=== PATIENT | male | born 1940 | race Caucasian/White ===

== ENCOUNTER 2018-01-22 11:06 | Inpatient (IN) ==
[2018-01-22] MEDS ORDERED: Morphine Inj 4 MG/ML Vial IV.PUSH ONE ×2 (11:29→12:17)
[2018-01-22] MEDS ORDERED: Sod Chloride 0.9% Inj 1,000 ML IV.SIG ONE (11:29)
--- NOTE | 2018-01-22 11:40 | ED ---
HPI General Chief Complaint: Back Pain/Injury Stated Complaint: back pain Time Seen by Provider: 01/22/18 11:20 Source: patient and family Mode of arrival: ambulatory Limitations: no limitations History of Present Illness HPI Narrative: Patient is a 77-year-old male who presents to the emergency room for evaluation of right-sided flank pain. Patient reports that he has been having pain to his right flank since 9am this morning, reports that now pain is more to his right groin. Denies hematuria, denies urinary urgency, he does have urinary frequency which he attributes to old age. Denies history of kidney stones in the past. Denies fever/chills, denies n/v/d. Patient's son who is at bedside did mention that patient had been complaining of back pain for the past week to his mother. Patient did try taking 1 acetaminophen which provided mild relief of symptoms. Related Data Home Medications Medication Instructions Recorded Confirmed No Known Home Medications 01/22/18 01/22/18 Allergies Allergy/AdvReac Type Severity Reaction Status Date / Time No Known Allergies Allergy Uncoded 01/10/16 13:59 Review of Systems Except as stated in HPI: all other systems reviewed are negative [facility] Social History Social History Substance History: No History of Abuse Second Hand Smoke Exposure: No Smoking Status: Never smoker How Often Do You Have a Drink Containing Alcohol: Never Recent Travel in [facility] within the Last 8 Weeks: No Recent Out of Country Travel within the Last 8 Weeks: No Immunization History Tetanus Immunization: Unsure Hx Influenza Vaccine This Season: Yes Exam Narrative Exam Narrative: GENERAL: mild distress SKIN: Focused skin assessment warm/dry. HEAD: Atraumatic. Normocephalic. EYES: Pupils equal and round. No scleral icterus. No injection or drainage. ENT: No nasal bleeding or discharge. Mucous membranes pink and moist. NECK: Trachea midline. No JVD. CARDIOVASCULAR: Regular rate and rhythm. No murmur appreciated. RESPIRATORY: No accessory muscle use. Clear to auscultation. Breath sounds equal bilaterally. GASTROINTESTINAL: Abdomen soft, non-tender, nondistended. Hepatic and splenic margins not palpable. Patient with right sided flank pain on exam MUSCULOSKELETAL: No obvious deformities. No clubbing. No cyanosis. No edema. NEUROLOGICAL: Awake and alert. No obvious cranial nerve deficits. Motor grossly within normal limits. Normal speech. PSYCHIATRIC: Appropriate mood and affect; insight and judgment normal. Course Initial Documented Vital Signs Temperature 97.2 F L 01/22/18 11:15 Pulse Rate 81 01/22/18 11:15 Respiratory Rate 16 01/22/18 11:15 Blood Pressure 150/67 H 01/22/18 11:15 Pulse Oximetry 99 01/22/18 11:15 Last Documented Vital Signs Temperature 97.2 F L 01/22/18 11:15 Pulse Rate 73 01/22/18 13:20 Respiratory Rate 18 01/22/18 13:20 Blood Pressure 159/72 H 01/22/18 13:20 Pulse Oximetry 100 01/22/18 13:20 Medical Decision Making MDM Narrative Medical decision making narrative: During the course of the patients emergency department visit, the patients history, examination, and differential diagnosis were reviewed with the patient. The patient was placed on a quality assurance monitor chassis with oximetry and frequent blood pressure monitoring. The patient had an IV access obtained and blood work sent for analysis. The patient was initially provided IVF as well as IV morphine for pain relief The patients laboratory studies were reviewed and remarkable for WBC at 50.9, bandemia 18 -patient reports that he is currently being worked up for a leukocytosis with pipeline technician Dr. Sanders, he had a bm biopsy which wasnt normal Radiology studies were reviewed and remarkable for 16 mm x 9.5 mm calculus at the right UPJ with mild right hydronephrosis and obstructive uropathy. Additional nonobstructing calculi in both kidneys as above. I am concerned with patient's white blood cell count as well as bandemia and renal dysfunction, patient will require admission to the hospital as he may need a PERC drain placed. He has been pancultured and was given a dose of rocephin. Case reviewed with patient who is agreeable to admission to the hospital. Case reviewed with FP resident who accepts pt to service Differential Diagnosis Differential Diagnosis: Pyelonephritis, UTI, kidney stone, muscloskeletal pain Medical Records Medical records reviewed: Yes I reviewed the patient's medical records. Lab Data Lab results reviewed: Yes I reviewed the patient's lab results. Result diagrams: 01/22/18 11:39 01/22/18 11:39 Lab Results 01/22/18 01/22/18 01/22/18 Range/Units 11:39 11:39 11:39 WBC 50.9 H (4.0-11.0) th/mm3 RBC 4.31 L (4.50-5.90) mil/mm3 Hgb 11.2 L (13.0-17.0) gm/dL Hct 34.4 L (39.0-51.0) % MCV 79.9 L (80.0-100.0) fL MCH 26.1 L (27.0-34.0) pg MCHC 32.6 (32.0-36.0) % RDW 27.6 H (11.6-17.2) % Plt Count 370 (150-450) th/mm3 MPV 8.4 (7.0-11.0) fL Prelim Diff (Auto) Manual diff required WBC Differential Manual diff final Seg Neuts % (Manual) 59 (16-70) % Band Neuts % (Manual) 18 H (0-6) % Lymphocytes % (Manual) 14 (9-44) % Monocytes % (Manual) 3 (0-8) % Eosinophils % (Manual) 2 (0-4) % Basophils % (Manual) 1 (0-2) % Metamyelocytes % (Man) 2 H (0-1) % Myelocytes % (Man) 2 H (0-0) % Blast Cells % (Manual) 1 H (0-0) % Abs Neuts (Manual) 41.2 H (1.8-7.7) th/mm3 Differential Comment . Platelet Estimate Normal (Normal) Platelet Morphology Normal (Normal) Ovalocytes 1+ H (None) Keratocytes Occ H (None) Sodium 142 (136-145) meq/L Potassium 4.1 (3.5-5.1) meq/L Chloride 108 H (98-107) meq/L Carbon Dioxide 25.1 (21.0-32.0) meq/L Anion Gap 9 (5-15) meq/L BUN 26 H (7-18) mg/dL Creatinine 1.66 H (0.60-1.30) mg/dL Estimated GFR 40 L (>89) mL/min Random Glucose 120 H (74-106) mg/dL Calcium 8.9 (8.5-10.1) mg/dL Total Bilirubin 0.7 (0.2-1.0) mg/dL AST 17 (15-37) U/L ALT 22 (12-78) U/L Alkaline Phosphatase 137 H (45-117) U/L Total Protein 7.1 (6.4-8.2) g/dL Albumin 4.1 (3.4-5.0) g/dL Lipase 180 (73-393) U/L Urine Color Yellow (Yellw/Straw) Urine Clarity Clear (Clear) Urine pH 5.0 (5.0-8.5) Ur Specific [place] 1.018 (1.002-1.035) Urine Protein Negative (Neg-Trace) mg/dL Urine Glucose (UA) Negative (Negative) mg/dL Urine Ketones Negative (Negative) mg/dL Urine Occult Blood Moderate H (Negative) Urine Nitrate Negative (Negative) Urine Bilirubin Negative (Negative) Urine Urobilinogen Less than 2 (Less than 2) mg/dL Ur Leukocyte Esterase Negative (Negative) Urine RBC 78 H (0-3) /hpf Urine WBC 3 (0-5) /hpf Uric Acid Crystals Rare H (None) /hpf Urine Bacteria Rare H (None) /hpf Urine Mucus Few H (Occasional) /lpf Micro UA Comment Culture not ind Urine Culture Comments Culture not ind Imaging Data Attestation: I personally reviewed and interpreted this imaging study as follows : Radiologist's impression: Abdomen/Pelvis CT 01/22/18 11:30 CONCLUSION: 1. 16 mm x 9.5 mm calculus at the right UPJ with mild right hydronephrosis and obstructive uropathy. Additional nonobstructing calculi in both kidneys as above. 2. Splenomegaly to 17.4 cm in length. 3. Small pericardial effusion with pectus deformity. 4. Moderate coronary calcifications. Discharge Plan Discharge Disposition Patient Disposition: 30 Still Patient Discharge Condition Condition: Serious Discharge Details Diagnosis: Bandemia, Kidney stones, Acute renal insufficiency Physicians Team ED Provider: Lana Phillips Primary Care Provider: Chicho Wiggins Rxs /Orders / Referrals /Forms Prescriptions: No Action No Known Home Medications RF: 0 Status ED Status: With Doctor
[2018-01-22 11:58] LABS: Hematocrit 34.4 % (39.0-51.0); Hemoglobin 11.2 gm/dL (13.0-17.0); Mean Corpuscular HGB Conc 32.6 % (32.0-36.0); Mean Corpuscular Hemoglobin 26.1 pg (27.0-34.0); Mean Corpuscular Volume 79.9 fL (80.0-100.0); Mean Platelet Volume 8.4 fL (7.0-11.0); Platelet Count 370 th/mm3 (150-450); Red Blood Count 4.31 mil/mm3 (4.50-5.90); Red Cell Distribution Width 27.6 % (11.6-17.2); White Blood Count 50.9 th/mm3 (4.0-11.0)
[2018-01-22] MEDS ORDERED: Lidocaine PF 1% Inj 5 ML Syringe INFILTRATN ONE (12:00)
[2018-01-22 12:09] LABS: Albumin 4.1 g/dL (3.4-5.0); Anion Gap 9 meq/L (5-15); Aspartate Aminotransferase 17 U/L (15-37); Blood Urea Nitrogen 26 mg/dL (7-18); Calcium 8.9 mg/dL (8.5-10.1); Carbon Dioxide 25.1 meq/L (21.0-32.0); Chloride 108 meq/L (98-107); Glomerular Filtration Rate 40 mL/min (>89); Glucose,Random 120 mg/dL (74-106); Lipase 180 U/L (73-393); Potassium 4.1 meq/L (3.5-5.1); Sodium 142 meq/L (136-145)
[2018-01-22 12:10] LABS: Alanine Aminotransferase 22 U/L (12-78)
[2018-01-22 12:13] LABS: Alkaline Phosphatase 137 U/L (45-117); Total Protein 7.1 g/dL (6.4-8.2)
[2018-01-22 12:16] LABS: Bacteria,Urine Rare /hpf; Bilirubin,Urine Negative (Negative); Clarity,Urine Clear (Clear); Color,Urine Yellow (Yellw/Straw); Glucose,Urine (UA) Negative (Negative); Leukocyte Esterase,Urine Negative (Negative); Mucus,Urine Few /lpf (Occasional); Nitrite,Urine Negative (Negative); Specific Gravity,Urine 1.018 (1.002-1.035); Uric Acid Crystals,Urine Rare /hpf
[2018-01-22 12:24] LABS: Eosinophils 2 % (0-4); Monocytes 3 % (0-8); Ovalocytes 1+
[2018-01-22 12:29] LABS: Blast Cells 1 % (0-0); Lymphocytes 14 % (9-44); Metamyelocytes 2 % (0-1); Myelocytes 2 % (0-0)
[2018-01-22 12:33] LABS: Platelet Estimate Normal (Normal); Platelet Morphology Normal (Normal)
--- NOTE | 2018-01-22 13:04 | CT ---
EXAM DATE: 01/22/2018 12:54 PM EDT AGE/SEX: 77 years / Male INDICATIONS: Right Side Flank Pain CLINICAL DATA: This is the patient's initial encounter. Patient reports that signs and symptoms have been present for 1 day and indicates a pain score of 7/10. MEDICAL/SURGICAL HISTORY: None. None. RADIATION DOSE: 6.64 CTDI (mGy) COMPARISON: No prior exams available for comparison. TECHNIQUE: Multiple contiguous axial images were obtained through the abdomen. Images were obtained using multiple row detector helical technique. Using automated exposure control and adjustment of the mA and/or kV according to patient size, radiation dose was kept as low as reasonably achievable to o btain optimal diagnostic quality images. DICOM format image data is available electronically for rev iew and comparison. FINDINGS: Pectus excavatum deformity is present. Linear scarring at the lung bases. Small pericardial effusion. No pleural effusion. Spleen is enlarged to 17.4 cm in length. Liver normal in size with a questionable nodular contour alexy t can be seen with cirrhosis. 16 mm x 9.5 mm calculus in the right renal pelvis near the UPJ associated with mild right-sided hydro nephrosis and likely obstructive uropathy given the right flank pain. There is an additional 6 mm non obstructing calculus in the lower pole right kidney and a 2 mm calculus in the lower pole left kidney . No pelvic masses or free fluid. No adenopathy. Mild constipation. Moderate coronary calcifications. CONCLUSION: 1. 16 mm x 9.5 mm calculus at the right UPJ with mild right hydronephrosis and obstructive uropathy. Additional nonobstructing calculi in both kidneys as above. 2. Splenomegaly to 17.4 cm in length. 3. Small pericardial effusion with pectus deformity. 4. Moderate coronary calcifications. Electronically signed by: Antwon Ford MD 01/22/2018 1:03 PM EDT
[2018-01-22] MEDS ORDERED: Ketorolac Inj 30 MG/ML (IVP) Vial IV.PUSH ONE (13:30)
--- NOTE | 2018-01-22 14:01 | P.HPFP ---
History of Present Illness Primary Care Physician: Chicho Wiggins MD <Dimitri Jeong 01/23/18 10:57> Chicho Wiggins MD <Stephon Mukherjee 01/22/18 14:01> History of Present Illness: Patient is a 77-year-old male with past history of leukocytosis with unknown etiology who presents today with back pain. States he had severe right lower back pain earlier this morning, after a few hours the pain radiated to his front/side. Otherwise he denies any significant abdominal pain. Denies nausea, vomiting, fever, chills, constipation, diarrhea, black or bloody stools, dysuria, change in urine color or smell, blood in urine, chest pain, palpitations, shortness of breath, left arm or jaw pain, lightheadedness, dizziness, headache, changes in vision. He denies any significant medical history other than a leukocytosis which is been going on for the past year, high of 17,000, has come down to 14,000 recently, being seen by Dr. Sanders. Reports a lack of energy for the past several weeks, however attributes it to the recent passing of his 18-year-old grandson. Denies anxiety, confusion, depression, sleep disturbances, lack of interest, change in appetite. No other acute complaints today. Medical Leukocytosis, etiology not identified Surg none Family Father: passed from CHF Mother: passed at 94 with Alzheimer Social EtOH: very rarely Smoking: none Drugs: none <Stephon Mukherjee 01/22/18 23:40> - Diagnosis (1) Hydronephrosis with obstructing calculus (2) Leukocytosis (3) Acute renal insufficiency (4) Nutrition, metabolism, and development symptoms <Dimitri Jeong 01/23/18 10:57> (1) Hydronephrosis with obstructing calculus (2) Bandemia (3) Acute renal insufficiency (4) Nutrition, metabolism, and development symptoms <Stephon Mukherjee 01/22/18 22:53> Inpatient Certification: I certify that the inpatient services were ordered in accordance with Medicare regulations governing the order. This includes certification that hospital inpatient services are reasonable and necessary and in the case of services not specified as inpatient-only under 42 CFR 419.22(n), that they are appropriately provided as inpatient services in accordance to with the 2-midnight benchmark under 43 CFR 412.3(e) <Dimitri Jeong - 01/23/18 10:57> Review of Systems Constitutional: Reports lack of energy, Denies body ache(s), Denies chills, Denies fever(s), Denies headache(s) <Stephon Mukherjee 01/22/18 23:40> Eyes: Denies blind spots, Denies blurry vision, Denies double vision, Denies loss of vision <Stephon Mukherjee 01/22/18 23:40> Ears, Nose, Mouth, and Throat: Reports ringing in the ears (chronic), Denies abnormal hearing, Denies dizziness, Denies dry mouth, Denies ear discharge, Denies headache(s) <Stephon Mukherjee 01/22/18 23:40> Cardiovascular: Denies chest pain, Denies excessive sweating, Denies fainting, Denies lightheadedness, Denies radiating jaw, neck or arm pain, Denies shortness of breath <Stephon Mukherjee 01/22/18 23:40> Respiratory: Denies cough, Denies coughing up blood, Denies shortness of breath , Denies wheezing <Stephon Mukherjee 01/22/18 23:40> Gastrointestinal: Denies abdominal pain, Denies black, tarry stools, Denies bright, red blood in stools, Denies change in bowel habits, Denies change in stools, Denies loose stools, Denies nausea, Denies vomiting <Stephon Mukherjee 01/22/18 23:40> Genitourinary: Denies blood in urine, Denies painful urination <Stephon Mukherjee 01/22/18 23:40> Musculoskeletal: Reports back pain, Denies joint pain, Denies joint swelling < Stephon Mukherjee 01/22/18 23:40> Skin/Breast: Denies dry skin, Denies rash, Denies skin ulcer, Denies sores < Stephon Mukherjee 01/22/18 23:40> Neurologic: Denies abnormal hearing, Denies abnormal movements, Denies abnormal speech, Denies confusion, Denies dizziness, Denies fainting, Denies headache(s) <Stephon Mukherjee 01/22/18 23:40> Psychiatric: Denies abnormal sleep pattern, Denies anxiety, Denies change in appetite, Denies confusion, Denies depression, Denies hopelessness, Denies thoughts of hurting/killing others, Denies thoughts of hurting/killing yourself <Stephon Mukherjee 01/22/18 23:40> Endocrine: Denies excessive sweating, Denies flushing <Stephon Mukherjee 11/04 23:40> Hematologic/Lymphatic: Denies easy bleeding, Denies easy bruising <Stephon Mukherjee 01/22/18 23:40> PMFSH - History History Provided By: Patient <Stephon Mukherjee 01/22/18 14:01> - Tobacco History Second Hand Smoke Exposure: No <Stephon Mukherjee 01/22/18 14:01> Tobacco Use In Past 30 Days: No <Stephon Mukherjee 01/22/18 14:01> Smoking Status: Never smoker <Stephon Mukherjee 01/22/18 14:01> - Alcohol History How Often Do You Have a Drink Containing Alcohol: Never <Stephon Mukherjee 14:01> - Substance Use History Substance History: No History of Abuse <Stephon Mukherjee 01/22/18 14:01> - Travel History Recent Travel in the [facility] Within the Last 8 Weeks: No <Stephon Mukherjee 01/22 14:01> Recent Travel Out of the Country Within the Last 8 Weeks: No <Stephon Mukherjee 01/22/18 14:01> - Immunization History Tetanus Immunization: Unsure <Stephon Mukherjee 01/22/18 14:01> Hx Influenza Vaccine This Season: Yes <Stephon Mukherjee 01/22/18 14:01> Medications and Allergies Allergies Allergy/AdvReac Type Severity Reaction Status Date / Time No Known Allergies Allergy Uncoded 01/10/16 13:59 <Dimitri Jeong 01/23/18 10:57> Home Medications Medication Instructions Recorded Confirmed Type No Known Home Medications 01/22/18 01/22/18 History <Dimitri Jeong 01/23/18 10:57> Active Medications: Active Medications Acetaminophen (Tylenol) 650 mg PO Q6HR PRN PRN Reason: PAIN SCALE 1 TO 2 Hydrocodone Bitart/Acetaminophen ([place] 5/325) 1 tab PO Q4H PRN PRN Reason: PAIN SCALE 3 TO 5 Last Admin: 01/23/18 03:45 Dose: 1 tab Ceftriaxone Sodium 1,000 mg/ (Sodium Chloride) 100 mls @ 200 mls/hr IV.SIG Q24H MOHAN Miscellaneous Information (Misc Nursing Information) 1 each OTHER UNSCH PRN PRN Reason: SEE LABEL COMMENTS Stop: 01/23/18 17:23 Morphine Sulfate (Morphine Inj) 4 mg IV.PUSH Q3H PRN PRN Reason: BREAKTHROUGH PAIN Naloxone HCl (Narcan Inj) 0.4 mg IV.PUSH UNSCH PRN PRN Reason: SEE LABEL COMMENTS Oxycodone/Acetaminophen (Percocet 5/325 Mg) 1 tab PO Q6H PRN PRN Reason: ABDOMINAL PAIN Stop: 01/25/18 23:59 Last Admin: 01/22/18 22:10 Dose: 1 tab Oxycodone/Acetaminophen (Percocet 10/325 Mg) 1 tab PO Q6H PRN PRN Reason: PAIN SCALE 6 TO 10 Last Admin: 01/23/18 01:06 Dose: 1 tab <Dimitri Jeong - 01/23/18 10:57> Exam Vital signs: Vital Signs 01/22/18 11:15 01/22/18 11:19 01/22/18 11:49 Temperature 97.2 F L Pulse Rate 81 83 Respiratory Rate 16 18 Blood Pressure 150/67 H 146/67 H Pulse Oximetry 99 99 98 01/22/18 11:59 01/22/18 13:20 01/22/18 17:21 Temperature 98.3 F Pulse Rate 73 80 Respiratory Rate 18 18 Blood Pressure 159/72 H 118/58 L Pulse Oximetry 98 100 96 01/22/18 17:30 01/22/18 17:45 01/22/18 17:54 Temperature 98.5 F Pulse Rate 71 80 Respiratory Rate 18 17 Blood Pressure 115/57 L 120/58 L Pulse Oximetry 96 97 97 01/22/18 18:00 01/22/18 19:00 01/22/18 19:58 Temperature 98.8 F 98.1 F Pulse Rate 64 62 65 Respiratory Rate 20 18 Blood Pressure 126/65 132/62 Pulse Oximetry 97 98 01/22/18 20:00 01/22/18 21:00 01/22/18 22:00 Temperature Pulse Rate 66 72 66 Respiratory Rate Blood Pressure Pulse Oximetry 01/22/18 23:00 01/23/18 00:00 01/23/18 01:00 Temperature 98.5 F Pulse Rate 65 61 56 L Respiratory Rate 18 Blood Pressure 132/71 Pulse Oximetry 96 01/23/18 02:00 01/23/18 03:00 01/23/18 04:00 Temperature 97.7 F Pulse Rate 58 L 64 58 L Respiratory Rate 18 Blood Pressure 119/60 Pulse Oximetry 97 01/23/18 04:42 01/23/18 05:00 01/23/18 06:00 Temperature Pulse Rate 57 L 57 L Respiratory Rate 16 Blood Pressure Pulse Oximetry 01/23/18 07:00 01/23/18 08:00 Temperature 97.8 F Pulse Rate 55 L 55 L Respiratory Rate 17 Blood Pressure 120/66 Pulse Oximetry 97 Intake & Output 01/22/18 01/23/18 01/23/18 18:59 06:59 18:59 Intake Total 500 / 500 480 / 480 Output Total 400 / 400 Balance 500 / 500 80 / 80 Weight 65.771 kg 68 kg Intake: Oral 480 / 480 Anesthesia Amount 500 / 500 Output: Urine 400 / 400 <Dimitri Jeong - 01/23/18 10:57> Vital Signs 01/22/18 11:15 01/22/18 11:19 01/22/18 11:49 Temperature 97.2 F L Pulse Rate 81 83 Respiratory Rate 16 18 Blood Pressure 150/67 H 146/67 H Pulse Oximetry 99 99 98 01/22/18 11:59 01/22/18 13:20 Temperature Pulse Rate 73 Respiratory Rate 18 Blood Pressure 159/72 H Pulse Oximetry 98 100 Intake & Output 01/21/18 01/22/18 01/22/18 18:59 06:59 18:59 Weight 65.771 kg <Stephon Mukherjee - 01/22/18 14:01> Narrative: GENERAL: Laying in bed, no acute distress. (Patient was examined following pain medication administration) SKIN: Warm and dry. Pectus excavatum HEAD: Atraumatic. Normocephalic. EYES: Pupils equal and round. No scleral icterus. No injection or drainage. ENT: No nasal bleeding or discharge. Mucous membranes pink and moist. NECK: Trachea midline. No JVD. CARDIOVASCULAR: Regular rate and rhythm. RESPIRATORY: No accessory muscle use. Clear to auscultation. Breath sounds equal bilaterally. GASTROINTESTINAL: Abdomen soft, non-tender, nondistended. Hepatic and splenic margins not palpable. MUSCULOSKELETAL: Extremities without clubbing, cyanosis, or edema. No obvious deformities. Mild right-sided CVA tenderness NEUROLOGICAL: Awake and alert. No obvious cranial nerve deficits. Motor grossly within normal limits. Five out of 5 muscle strength in the arms and legs. Normal speech. PSYCHIATRIC: Appropriate mood and affect; insight and judgment normal. <Stephon Mukherjee - 01/22/18 23:40> Results - Labs Result diagrams: 01/23/18 06:47 01/23/18 06:47 <Dimitri Jeong - 01/23/18 10:57> Abnormal lab results 01/22/18 01/22/18 01/22/18 Range/Units 11:39 11:39 11:39 WBC 50.9 H (4.0-11.0) th/mm3 RBC 4.31 L (4.50-5.90) mil/mm3 Hgb 11.2 L (13.0-17.0) gm/dL Hct 34.4 L (39.0-51.0) % MCV 79.9 L (80.0-100.0) fL MCH 26.1 L (27.0-34.0) pg RDW 27.6 H (11.6-17.2) % Neut % (Auto) (16.0-70.0) % Lymph % (Auto) (9.0-44.0) % Neut # (Auto) (1.8-7.7) th/mm3 [place] # (Auto) (0.0-0.9) th/mm3 Baso # (Auto) (0.0-0.2) th/mm3 Band Neuts % (Manual) 18 H (0-6) % Lymphocytes % (Manual) (9-44) % Metamyelocytes % (Man) 2 H (0-1) % Myelocytes % (Man) 2 H (0-0) % Blast Cells % (Manual) 1 H (0-0) % Abs Neuts (Manual) 41.2 H (1.8-7.7) th/mm3 Nucleated RBCs/100 WBC (0-0) /100 WBC Ovalocytes 1+ H (None) Keratocytes Occ H (None) Chloride 108 H (98-107) meq/L BUN 26 H (7-18) mg/dL Creatinine 1.66 H (0.60-1.30) mg/dL Estimated GFR 40 L (>89) mL/min Random Glucose 120 H (74-106) mg/dL AST (15-37) U/L Alkaline Phosphatase 137 H (45-117) U/L Total Protein (6.4-8.2) g/dL Urine Occult Blood Moderate H (Negative) Urine RBC 78 H (0-3) /hpf Uric Acid Crystals Rare H (None) /hpf Urine Bacteria Rare H (None) /hpf Urine Mucus Few H (Occasional) /lpf 01/23/18 01/23/18 Range/Units 06:47 06:47 WBC 56.4 H (4.0-11.0) th/mm3 RBC 3.79 L (4.50-5.90) mil/mm3 Hgb 9.9 L (13.0-17.0) gm/dL Hct 30.2 L (39.0-51.0) % MCV 79.7 L (80.0-100.0) fL MCH 26.0 L (27.0-34.0) pg RDW 27.5 H (11.6-17.2) % Neut % (Auto) 94.6 H (16.0-70.0) % Lymph % (Auto) 2.2 L (9.0-44.0) % Neut # (Auto) 53.3 H (1.8-7.7) th/mm3 [place] # (Auto) 1.1 H (0.0-0.9) th/mm3 Baso # (Auto) 0.4 H (0.0-0.2) th/mm3 Band Neuts % (Manual) 16 H (0-6) % Lymphocytes % (Manual) 1 L (9-44) % Metamyelocytes % (Man) (0-1) % Myelocytes % (Man) 13 H (0-0) % Blast Cells % (Manual) (0-0) % Abs Neuts (Manual) 54.1 H (1.8-7.7) th/mm3 Nucleated RBCs/100 WBC 1 H (0-0) /100 WBC Ovalocytes 1+ H (None) Keratocytes (None) Chloride 109 H (98-107) meq/L BUN 30 H (7-18) mg/dL Creatinine 1.64 H (0.60-1.30) mg/dL Estimated GFR 41 L (>89) mL/min Random Glucose (74-106) mg/dL AST 10 L (15-37) U/L Alkaline Phosphatase (45-117) U/L Total Protein 6.1 L D (6.4-8.2) g/dL Urine Occult Blood (Negative) Urine RBC (0-3) /hpf Uric Acid Crystals (None) /hpf Urine Bacteria (None) /hpf Urine Mucus (Occasional) /lpf Short CBC 01/22/18 01/23/18 Range/Units 11:39 06:47 WBC 50.9 H 56.4 H (4.0-11.0) th/mm3 Hgb 11.2 L 9.9 L (13.0-17.0) gm/dL Hct 34.4 L 30.2 L (39.0-51.0) % Plt Count 370 358 (150-450) th/mm3 BMP 01/22/18 01/23/18 11:39 06:47 Sodium 142 142 Potassium 4.1 4.3 Chloride 108 H 109 H Carbon Dioxide 25.1 25.1 BUN 26 H 30 H Creatinine 1.66 H 1.64 H Calcium 8.9 8.5 Liver Function 01/22/18 01/23/18 Range/Units 11:39 06:47 Total Bilirubin 0.7 0.6 (0.2-1.0) mg/dL AST 17 10 L (15-37) U/L ALT 22 17 (12-78) U/L Alkaline Phosphatase 137 H 117 (45-117) U/L Albumin 4.1 3.4 D (3.4-5.0) g/dL Urine 01/22/18 Range/Units 11:39 Urine Color Yellow (Yellw/Straw) Urine Clarity Clear (Clear) Urine pH 5.0 (5.0-8.5) Ur Specific [place] 1.018 (1.002-1.035) Urine Protein Negative (Neg-Trace) mg/dL Urine Glucose (UA) Negative (Negative) mg/dL <Dimitri Jeong - 01/23/18 10:57> Abnormal lab results 01/22/18 01/22/18 01/22/18 Range/Units 11:39 11:39 11:39 WBC 50.9 H (4.0-11.0) th/mm3 RBC 4.31 L (4.50-5.90) mil/mm3 Hgb 11.2 L (13.0-17.0) gm/dL Hct 34.4 L (39.0-51.0) % MCV 79.9 L (80.0-100.0) fL MCH 26.1 L (27.0-34.0) pg RDW 27.6 H (11.6-17.2) % Band Neuts % (Manual) 18 H (0-6) % Metamyelocytes % (Man) 2 H (0-1) % Myelocytes % (Man) 2 H (0-0) % Blast Cells % (Manual) 1 H (0-0) % Abs Neuts (Manual) 41.2 H (1.8-7.7) th/mm3 Ovalocytes 1+ H (None) Keratocytes Occ H (None) Chloride 108 H (98-107) meq/L BUN 26 H (7-18) mg/dL Creatinine 1.66 H (0.60-1.30) mg/dL Estimated GFR 40 L (>89) mL/min Random Glucose 120 H (74-106) mg/dL Alkaline Phosphatase 137 H (45-117) U/L Urine Occult Blood Moderate H (Negative) Urine RBC 78 H (0-3) /hpf Uric Acid Crystals Rare H (None) /hpf Urine Bacteria Rare H (None) /hpf Urine Mucus Few H (Occasional) /lpf Short CBC 01/22/18 Range/Units 11:39 WBC 50.9 H (4.0-11.0) th/mm3 Hgb 11.2 L (13.0-17.0) gm/dL Hct 34.4 L (39.0-51.0) % Plt Count 370 (150-450) th/mm3 BMP 01/22/18 11:39 Sodium 142 Potassium 4.1 Chloride 108 H Carbon Dioxide 25.1 BUN 26 H Creatinine 1.66 H Calcium 8.9 Liver Function 01/22/18 Range/Units 11:39 Total Bilirubin 0.7 (0.2-1.0) mg/dL AST 17 (15-37) U/L ALT 22 (12-78) U/L Alkaline Phosphatase 137 H (45-117) U/L Albumin 4.1 (3.4-5.0) g/dL Urine 01/22/18 Range/Units 11:39 Urine Color Yellow (Yellw/Straw) Urine Clarity Clear (Clear) Urine pH 5.0 (5.0-8.5) Ur Specific [place] 1.018 (1.002-1.035) Urine Protein Negative (Neg-Trace) mg/dL Urine Glucose (UA) Negative (Negative) mg/dL <Stephon Mukherjee 01/22/18 14:01> - Imaging Impressions Abdomen/Pelvis CT 01/22/18 11:30 CONCLUSION: 1. 16 mm x 9.5 mm calculus at the right UPJ with mild right hydronephrosis and obstructive uropathy. Additional nonobstructing calculi in both kidneys as above. 2. Splenomegaly to 17.4 cm in length. 3. Small pericardial effusion with pectus deformity. 4. Moderate coronary calcifications. <Dimitri Jeong - 01/23/18 10:57> Impressions Abdomen/Pelvis CT 01/22/18 11:30 CONCLUSION: 1. 16 mm x 9.5 mm calculus at the right UPJ with mild right hydronephrosis and obstructive uropathy. Additional nonobstructing calculi in both kidneys as above. 2. Splenomegaly to 17.4 cm in length. 3. Small pericardial effusion with pectus deformity. 4. Moderate coronary calcifications. <Stephon Mukherjee 01/22/18 14:01> Caprini VTE Risk Assessment Caprini VTE Risk Assessment: Moderate/High Risk (score >= 2) <Stephon Mukherjee 01/22/18 23:40> Caprini Risk Assessment Model: Point Value = 1 Point Value = 2 Point Value = 3 Point Value = 5 Age 41-60 Minor surgery BMI > 25 kg/m2 Swollen legs Varicose veins or History of unexplained or recurrent spontaneous Oral contraceptives or hormone replacement Sepsis (< 1 month) Serious lung disease, including pneumonia (< 1 month) Abnormal pulmonary function Acute myocardial infarction Congestive heart failure (< 1 month) History of inflammatory bowel disease Medical patient at bed rest Age 61-74 Arthroscopic surgery Major open surgery (> 45 min) Laparoscopic surgery (> 45 min) Malignancy Confined to bed (> 72 hours) Immobilizing plaster cast Central venous access Age >= 75 History of VTE Family history of VTE Factor V Leiden Prothrombin [id number] Lupus anticoagulant Anticardiolipin antibodies Elevated serum homocysteine Heparin-induced thrombocytopenia Other congenital or acquired thrombophilia Stroke (< 1 month) Elective arthroplasty Hip, pelvis, or leg fracture Acute spinal cord injury (< 1 month) <Dimitri Jeong - 01/23/18 10:57> Point Value = 1 Point Value = 2 Point Value = 3 Point Value = 5 Age 41-60 Minor surgery BMI > 25 kg/m2 Swollen legs Varicose veins or History of unexplained or recurrent spontaneous Oral contraceptives or hormone replacement Sepsis (< 1 month) Serious lung disease, including pneumonia (< 1 month) Abnormal pulmonary function Acute myocardial infarction Congestive heart failure (< 1 month) History of inflammatory bowel disease Medical patient at bed rest Age 61-74 Arthroscopic surgery Major open surgery (> 45 min) Laparoscopic surgery (> 45 min) Malignancy Confined to bed (> 72 hours) Immobilizing plaster cast Central venous access Age >= 75 History of VTE Family history of VTE Factor V Leiden Prothrombin [id number] Lupus anticoagulant Anticardiolipin antibodies Elevated serum homocysteine Heparin-induced thrombocytopenia Other congenital or acquired thrombophilia Stroke (< 1 month) Elective arthroplasty Hip, pelvis, or leg fracture Acute spinal cord injury (< 1 month) <Stephon Mukherjee - 01/22/18 14:01> Prophylaxis Regimen: Total Risk Factor Score Risk Level Prophylaxis Regimen 0-1 Low Early ambulation 2 Moderate Order ONE of the following: *Sequential Compression Device (SCD) *Heparin 5000 units SQ BID 3-4 Higher Order ONE of the following medications: *Heparin 5000 units SQ TID *Enoxaparin/Lovenox 40 mg SQ daily (WT < 150 kg, CrCl > 30 mL/min) *Enoxaparin/Lovenox 30 mg SQ daily (WT < 150 kg, CrCl > 10-29 mL/min) *Enoxaparin/Lovenox 30 mg SQ BID (WT < 150 kg, CrCl > 30 mL/min) AND/OR *Sequential Compression Device (SCD) 5 or more Highest Order ONE of the following medications: *Heparin 5000 units SQ TID (Preferred with Epidurals) *Enoxaparin/Lovenox 40 mg SQ daily (WT < 150 kg, CrCl > 30 mL/min) *Enoxaparin/Lovenox 30 mg SQ daily (WT < 150 kg, CrCl > 10-29 mL/min) *Enoxaparin/Lovenox 30 mg SQ BID (WT < 150 kg, CrCl > 30 mL/min) AND *Sequential Compression Device (SCD) <Dimitri Jeong - 01/23/18 10:57> Total Risk Factor Score Risk Level Prophylaxis Regimen 0-1 Low Early ambulation 2 Moderate Order ONE of the following: *Sequential Compression Device (SCD) *Heparin 5000 units SQ BID 3-4 Higher Order ONE of the following medications: *Heparin 5000 units SQ TID *Enoxaparin/Lovenox 40 mg SQ daily (WT < 150 kg, CrCl > 30 mL/min) *Enoxaparin/Lovenox 30 mg SQ daily (WT < 150 kg, CrCl > 10-29 mL/min) *Enoxaparin/Lovenox 30 mg SQ BID (WT < 150 kg, CrCl > 30 mL/min) AND/OR *Sequential Compression Device (SCD) 5 or more Highest Order ONE of the following medications: *Heparin 5000 units SQ TID (Preferred with Epidurals) *Enoxaparin/Lovenox 40 mg SQ daily (WT < 150 kg, CrCl > 30 mL/min) *Enoxaparin/Lovenox 30 mg SQ daily (WT < 150 kg, CrCl > 10-29 mL/min) *Enoxaparin/Lovenox 30 mg SQ BID (WT < 150 kg, CrCl > 30 mL/min) AND *Sequential Compression Device (SCD) <Stephon Mukherjee - 01/22/18 14:01> Assessment and Plan - Assessment (1) Hydronephrosis with obstructing calculus Code(s): N13.2 - Hydronephrosis with renal and ureteral calculous obstruction Status: Acute (2) Leukocytosis Code(s): D72.829 - Elevated white blood cell count, unspecified Status: Acute (3) Acute renal insufficiency Code(s): N28.9 - Disorder of kidney and ureter, unspecified Status: Acute (4) Nutrition, metabolism, and development symptoms Code(s): R63.8 - Other symptoms and signs concerning food and fluid intake Status: Acute <Jean-PaulDimitri ortiz - 01/23/18 10:57> (1) Hydronephrosis with obstructing calculus Code(s): N13.2 - Hydronephrosis with renal and ureteral calculous obstruction Status: Acute Plan: Right sided hydronephrosis with obstructing calculus, 16 mm 9.5 mm at right UPJ. -Consult urology, appreciate recommendations -Rocephin 1 g daily (2) Bandemia Code(s): D72.825 - Bandemia Status: Acute Plan: Bandemia of 18 with significant leukocytosis of 50.9. History of leukocytosis with unknown etiology, high of [address] Sanders. -Monitor for improvement on CBC -Follow-up blood cultures -Antibiotics as above -Hematology consult (3) Acute renal insufficiency Code(s): N28.9 - Disorder of kidney and ureter, unspecified Status: Acute Plan: Creatinine 1.66 on admission, historically 1.3-1.36. Likely 2/2 right sided ureteral obstruction. -Will hold IV fluids until assess by Urology -Continue PO intake (4) Nutrition, metabolism, and development symptoms Code(s): R63.8 - Other symptoms and signs concerning food and fluid intake Status: Acute Plan: Fluids: P.o. for now Electrolytes: Monitor and replete as needed Nutrition: P.o. DVT prophylaxis: Hold for now, possibility of urologic intervention <Stephon Mukherjee - 01/22/18 22:53> - Attending Attestation The exam, history, and the medical decision-making described in the above note were completed with the assistance of the resident physician. I reviewed and agree with the findings presented. I attest that I had a [id number] encounter with the patient on the same day, and personally performed and documented my assessment and findings in the medical record. <Dimitri Jeong - 01/23/18 10:57> <Jean-PaulDimitri - Cody Filed: 01/23/18 10:57> (2) Leukocytosis Qualifiers: Leukocytosis type: bandemia Qualified Code(s): D72.825 - Bandemia <Jean-PaulDimitri - Cody Filed: 01/23/18 10:57> (2) Leukocytosis Qualifiers: Leukocytosis type: bandemia Qualified Code(s): D72.825 - Bandemia
--- NOTE | 2018-01-22 17:15 | P.OP ---
- Preoperative Diagnosis (1) Hydronephrosis concurrent with and due to calculi of kidney and ureter (2) Kidney stones - Postoperative Diagnosis (1) Kidney stones (2) Hydronephrosis concurrent with and due to calculi of kidney and ureter Date of procedure: 01/22/18 Procedure: Cystoscopy, right retrograde pyelogram, right double-J stent insertion Anesthesia: other (General LMA) Surgeon: Дмитрий Romero DO Estimated blood loss (mL): 0 Operation and Findings: 77-year-old male with a history of acute onset of right-sided flank pain. CT scan in the emergency room demonstrated a 1 cm right UPJ stone with mild hydronephrosis. Decision made to bring the patient to the operating room to undergo a cystoscopy right double-J stent insertion. Risk and benefits were discussed preoperatively the patient was willing to proceed. Patient was brought to the operating room and identified by myself as Aristeo Bhatt. He was placed in dorsal lithotomy position, prepped and draped in usual sterile fashion, and received preprocedure antibiotics and general LMA anesthesia was administered. 22 [place] cystoscope was inserted in the bladder moran cystoscopy did not reveal any abnormal. The right ureteral orifice was identified and a 5 [place] opening catheter was inserted into the right ureteral orifice. A retrograde pyelogram was performed demonstrating a filling defect at the area of the UPJ and renal pelvis. The stone was not able to be visualized under direct fluoroscopy. A 0.35 sensor wire was then passed through the open-ended catheter beyond the stone in the kidney. A 6 [place] right double-J stent was then placed with a good curl in the kidney and the bladder and the bladder was evacuated and he was awoken and extubated and transferred recovery room in stable condition. He will require right extrapleural shockwave lithotripsy in the future.
[2018-01-22] MEDS ORDERED: fentaNYL Citrate Inj 100 MCG/2 ML Ampul ONE (17:32)
--- NOTE | 2018-01-22 17:38 | MB ---
cc: Дмитрий Romero DO DATE: 01/22/2018 HISTORY OF PRESENT ILLNESS: Mr. Bhatt is a pleasant 77-year-old male who presented with right-sided flank pain. A CT scan in the emergency room demonstrated a 1 cm UPJ stone, with moderate hydronephrosis. He has been noting to have some nausea with some vomiting. Denies fever or chills. He was noted to have an elevated white count of 50.9, which is being monitored by his family care physician. He denies any prior history of stones. PAST MEDICAL HISTORY: He denies any medical problems. PAST SURGICAL HISTORY: He denies any prior surgery. SOCIAL HISTORY: He denies any smoking, drinking or using drugs. FAMILY HISTORY: He has no history of prostate cancer. REVIEW OF SYSTEMS: Notes right-sided flank pain, some nausea, denies gross hematuria, urgency. Notes some abdominal pain. Denies chest pain, shortness of breath, abdominal pain, headaches, gait disturbances, bleeding disorders, psychiatric problems, skin lesions. The remaining review of systems were reviewed and were negative. PHYSICAL EXAMINATION: VITAL SIGNS: Today, temperature, he is afebrile, heart rate 73, respiratory rate 18, 159/72 is his blood pressure. GENERAL: He is a well-developed, well-nourished 77-year-old male in no acute distress. HEENT: Normocephalic, atraumatic. Pupils equal, round, regular and reactive to light. Extraocular movements intact. NECK: Supple. HEART: Regular rate and rhythm. LUNGS: Clear. ABDOMEN: Soft. There is right-sided CVA tenderness. GENITOURINARY: Normal phallus. Testes are descended. EXTREMITIES: Show no cyanosis, clubbing or edema. NEUROLOGIC: Cranial nerves 2-12 are intact. LABORATORY DATA: White count is noted to be 50.9, hemoglobin 11.2, hematocrit 34.4, platelet count of 370. Sodium 142, potassium 4.1, chloride 108, CO2 25.1, BUN of 25, creatinine 1.56, glucose of 120. Urinalysis shows 78 red cells with 3 white cells. IMAGING: Again, CT scan shows a 1 cm UPJ stone, with moderate hydronephrosis. ASSESSMENT AND PLAN: This is a 77-year-old male with a 1 cm right ureteropelvic junction stone, with some mild hydronephrosis. We will plan for cystoscopy with right double-J stent insertion. He will need a workup for his elevated white count, as he does not appear to be septic at all and there is only 3 white cells in the urine. We will require right extracorporeal shock wave lithotripsy in the near future. Thank you for the consult and allowing me to participate in the care of this patient. DO ALCIDES Hatch , 05:19 PM , 05:27 PM
[2018-01-23] MEDS ORDERED: Acetaminophen 325 MG Tablet PO PRN (00:32)
[2018-01-23] MEDS ORDERED: Morphine Inj 4 MG/ML Vial IV.PUSH PRN (00:32)
[2018-01-23] MEDS ORDERED: Naloxone Inj 0.4 MG/ML Vial IV.PUSH PRN (00:32)
[2018-01-23] MEDS ORDERED: oxyCODONE/Acetaminophen 10/325 Tablet PO PRN (00:32)
[2018-01-23 08:11] LABS: Baso # (Auto) 0.4 th/mm3 (0.0-0.2); Baso % (Auto) 0.7 % (0.0-2.0); Eos # (Auto) 0.3 th/mm3 (0.0-0.4); Eos % (Auto) 0.6 % (0.0-4.0); Hematocrit 30.2 % (39.0-51.0); Hemoglobin 9.9 gm/dL (13.0-17.0); Lymph # (Auto) 1.2 th/mm3 (1.0-4.8); Lymph % (Auto) 2.2 % (9.0-44.0); Mean Corpuscular HGB Conc 32.6 % (32.0-36.0); Mean Corpuscular Volume 79.7 fL (80.0-100.0); Mean Platelet Volume 8.5 fL (7.0-11.0); Mono # (Auto) 1.1 th/mm3 (0.0-0.9); Mono % (Auto) 1.9 % (0.0-8.0); Neut # (Auto) 53.3 th/mm3 (1.8-7.7); Neut % (Auto) 94.6 % (16.0-70.0); Platelet Count 358 th/mm3 (150-450); Red Blood Count 3.79 mil/mm3 (4.50-5.90); Red Cell Distribution Width 27.5 % (11.6-17.2); White Blood Count 56.4 th/mm3 (4.0-11.0)
[2018-01-23 08:37] LABS: Alanine Aminotransferase 17 U/L (12-78); Albumin 3.4 g/dL (3.4-5.0); Alkaline Phosphatase 117 U/L (45-117); Anion Gap 8 meq/L (5-15); Aspartate Aminotransferase 10 U/L (15-37); Blood Urea Nitrogen 30 mg/dL (7-18); Calcium 8.5 mg/dL (8.5-10.1); Carbon Dioxide 25.1 meq/L (21.0-32.0); Chloride 109 meq/L (98-107); Glomerular Filtration Rate 41 mL/min (>89); Glucose,Random 79 mg/dL (74-106); Potassium 4.3 meq/L (3.5-5.1); Sodium 142 meq/L (136-145); Total Protein 6.1 g/dL (6.4-8.2)
[2018-01-23 08:56] LABS: Lymphocytes 1 % (9-44); Metamyelocytes 1 % (0-1); Monocytes 3 % (0-8); Myelocytes 13 % (0-0); Ovalocytes 1+; Platelet Estimate Normal (Normal); Platelet Morphology Normal (Normal); Tallied Nucleated RBC 1 (0-0)
--- NOTE | 2018-01-23 08:56 | P.PNURO ---
Subjective Patient symptoms today: Pt seen and examined. Feels well. Objective Vital Signs: Vital Signs 01/22/18 11:15 01/22/18 11:19 01/22/18 11:49 Temperature 97.2 F L Pulse Rate 81 83 Respiratory Rate 16 18 Blood Pressure 150/67 H 146/67 H Pulse Oximetry 99 99 98 01/22/18 11:59 01/22/18 13:20 01/22/18 17:21 Temperature 98.3 F Pulse Rate 73 80 Respiratory Rate 18 18 Blood Pressure 159/72 H 118/58 L Pulse Oximetry 98 100 96 01/22/18 17:30 01/22/18 17:45 01/22/18 17:54 Temperature 98.5 F Pulse Rate 71 80 Respiratory Rate 18 17 Blood Pressure 115/57 L 120/58 L Pulse Oximetry 96 97 97 01/22/18 18:00 01/22/18 19:00 01/22/18 19:58 Temperature 98.8 F 98.1 F Pulse Rate 64 62 65 Respiratory Rate 20 18 Blood Pressure 126/65 132/62 Pulse Oximetry 97 98 01/22/18 20:00 01/22/18 21:00 01/22/18 22:00 Temperature Pulse Rate 66 72 66 Respiratory Rate Blood Pressure Pulse Oximetry 01/22/18 23:00 01/23/18 00:00 01/23/18 01:00 Temperature 98.5 F Pulse Rate 65 61 56 L Respiratory Rate 18 Blood Pressure 132/71 Pulse Oximetry 96 01/23/18 02:00 01/23/18 03:00 01/23/18 04:00 Temperature 97.7 F Pulse Rate 58 L 64 58 L Respiratory Rate 18 Blood Pressure 119/60 Pulse Oximetry 97 01/23/18 04:42 01/23/18 05:00 01/23/18 06:00 Temperature Pulse Rate 57 L 57 L Respiratory Rate 16 Blood Pressure Pulse Oximetry 01/23/18 07:00 01/23/18 08:00 Temperature 97.8 F Pulse Rate 55 L 55 L Respiratory Rate 17 Blood Pressure 120/66 Pulse Oximetry 97 Intake & Output 01/22/18 01/23/18 01/23/18 18:59 06:59 18:59 Intake Total 500 / 500 480 / 480 Output Total 400 / 400 Balance 500 / 500 80 / 80 Weight 65.771 kg 68 kg Intake: Oral 480 / 480 Anesthesia Amount 500 / 500 Output: Urine 400 / 400 Result Diagrams: 01/23/18 06:47 01/23/18 06:47 Imaging: Impressions Abdomen/Pelvis CT 01/22/18 11:30 CONCLUSION: 1. 16 mm x 9.5 mm calculus at the right UPJ with mild right hydronephrosis and obstructive uropathy. Additional nonobstructing calculi in both kidneys as above. 2. Splenomegaly to 17.4 cm in length. 3. Small pericardial effusion with pectus deformity. 4. Moderate coronary calcifications. Medications and IVs: Active Medications Generic Name Dose Route Start Last Admin Trade Name Freq PRN Reason Stop Dose Admin Acetaminophen 650 mg 01/23/18 00:32 Tylenol PO Q6HR PRN PAIN SCALE 1 TO 2 Hydrocodone Bitart/Acetaminophen 1 tab 01/23/18 00:32 01/23/18 03:45 [place] 5/325 PO 1 tab Q4H PRN Administration PAIN SCALE 3 TO 5 Ceftriaxone Sodium 1,000 mg/ 100 mls @ 200 mls/hr 01/23/18 09:00 Sodium Chloride IV.SIG Q24H [facility] Miscellaneous Information 1 each 01/22/18 17:24 Misc Nursing Information OTHER 01/23/18 17:23 UNSCH PRN SEE LABEL COMMENTS Morphine Sulfate 4 mg 01/23/18 00:32 Morphine Inj IV.PUSH Q3H PRN BREAKTHROUGH PAIN Naloxone HCl 0.4 mg 01/23/18 00:32 Narcan Inj IV.PUSH UNSCH PRN SEE LABEL COMMENTS Oxycodone/Acetaminophen 1 tab 01/22/18 17:20 01/22/18 22:10 Percocet 5/325 Mg PO 01/25/18 23:59 1 tab Q6H PRN Administration ABDOMINAL PAIN Oxycodone/Acetaminophen 1 tab 01/23/18 00:32 01/23/18 01:06 Percocet 10/325 Mg PO 1 tab Q6H PRN Administration PAIN SCALE 6 TO 10 Objective Remarks: Abd:soft,nt,nd Urine: aimee in color Assessment and Plan - Plan Stable s/p right JJ stent insertion Will require right ESWL as outpt Avoid anticoagulate medication/NSAIDS
--- NOTE | 2018-01-23 10:56 | P.PNFP ---
Subjective Interval history: Patient seen with resident team during medical rounds this morning. He is sitting up in bed and eating breakfast in no obvious distress. He states that he continues to have some dysuria/burning with urination, otherwise his back/ flank pain has resolved. He denies any fevers or chills. He denies any nausea or vomiting. He denies any other systemic symptoms. Further questioning does elicit a history of progressive fatigue over the last several weeks, but denies any acute changes or flulike illness. In summary, this is a 77-year-old male presenting to the emergency department with back pain and found to have a large obstructing kidney stone. He was admitted for evaluation by urology and subsequently underwent a cystoscopy with placement of a double-J stent to relieve the obstruction with future lithotripsy planned. He also was noted to have a significant leukocytosis of greater than 50,000, he states that he has had a history of leukocytosis and is been seen by Dr. Sanders of hematology, undergoing blood work, bone marrow biopsy, and blood smear with no definitive findings -however records are not readily available to us. Results - Labs Result diagrams: 01/23/18 06:47 01/23/18 06:47 Abnormal lab results 01/22/18 01/22/18 01/22/18 Range/Units 11:39 11:39 11:39 WBC 50.9 H (4.0-11.0) th/mm3 RBC 4.31 L (4.50-5.90) mil/mm3 Hgb 11.2 L (13.0-17.0) gm/dL Hct 34.4 L (39.0-51.0) % MCV 79.9 L (80.0-100.0) fL MCH 26.1 L (27.0-34.0) pg RDW 27.6 H (11.6-17.2) % Neut % (Auto) (16.0-70.0) % Lymph % (Auto) (9.0-44.0) % Neut # (Auto) (1.8-7.7) th/mm3 [place] # (Auto) (0.0-0.9) th/mm3 Baso # (Auto) (0.0-0.2) th/mm3 Band Neuts % (Manual) 18 H (0-6) % Lymphocytes % (Manual) (9-44) % Metamyelocytes % (Man) 2 H (0-1) % Myelocytes % (Man) 2 H (0-0) % Blast Cells % (Manual) 1 H (0-0) % Abs Neuts (Manual) 41.2 H (1.8-7.7) th/mm3 Nucleated RBCs/100 WBC (0-0) /100 WBC Ovalocytes 1+ H (None) Keratocytes Occ H (None) Chloride 108 H (98-107) meq/L BUN 26 H (7-18) mg/dL Creatinine 1.66 H (0.60-1.30) mg/dL Estimated GFR 40 L (>89) mL/min Random Glucose 120 H (74-106) mg/dL AST (15-37) U/L Alkaline Phosphatase 137 H (45-117) U/L Total Protein (6.4-8.2) g/dL Urine Occult Blood Moderate H (Negative) Urine RBC 78 H (0-3) /hpf Uric Acid Crystals Rare H (None) /hpf Urine Bacteria Rare H (None) /hpf Urine Mucus Few H (Occasional) /lpf 01/23/18 01/23/18 Range/Units 06:47 06:47 WBC 56.4 H (4.0-11.0) th/mm3 RBC 3.79 L (4.50-5.90) mil/mm3 Hgb 9.9 L (13.0-17.0) gm/dL Hct 30.2 L (39.0-51.0) % MCV 79.7 L (80.0-100.0) fL MCH 26.0 L (27.0-34.0) pg RDW 27.5 H (11.6-17.2) % Neut % (Auto) 94.6 H (16.0-70.0) % Lymph % (Auto) 2.2 L (9.0-44.0) % Neut # (Auto) 53.3 H (1.8-7.7) th/mm3 [place] # (Auto) 1.1 H (0.0-0.9) th/mm3 Baso # (Auto) 0.4 H (0.0-0.2) th/mm3 Band Neuts % (Manual) 16 H (0-6) % Lymphocytes % (Manual) 1 L (9-44) % Metamyelocytes % (Man) (0-1) % Myelocytes % (Man) 13 H (0-0) % Blast Cells % (Manual) (0-0) % Abs Neuts (Manual) 54.1 H (1.8-7.7) th/mm3 Nucleated RBCs/100 WBC 1 H (0-0) /100 WBC Ovalocytes 1+ H (None) Keratocytes (None) Chloride 109 H (98-107) meq/L BUN 30 H (7-18) mg/dL Creatinine 1.64 H (0.60-1.30) mg/dL Estimated GFR 41 L (>89) mL/min Random Glucose (74-106) mg/dL AST 10 L (15-37) U/L Alkaline Phosphatase (45-117) U/L Total Protein 6.1 L D (6.4-8.2) g/dL Urine Occult Blood (Negative) Urine RBC (0-3) /hpf Uric Acid Crystals (None) /hpf Urine Bacteria (None) /hpf Urine Mucus (Occasional) /lpf Short CBC 01/22/18 01/23/18 Range/Units 11:39 06:47 WBC 50.9 H 56.4 H (4.0-11.0) th/mm3 Hgb 11.2 L 9.9 L (13.0-17.0) gm/dL Hct 34.4 L 30.2 L (39.0-51.0) % Plt Count 370 358 (150-450) th/mm3 BMP 01/22/18 01/23/18 11:39 06:47 Sodium 142 142 Potassium 4.1 4.3 Chloride 108 H 109 H Carbon Dioxide 25.1 25.1 BUN 26 H 30 H Creatinine 1.66 H 1.64 H Calcium 8.9 8.5 Liver Function 01/22/18 01/23/18 Range/Units 11:39 06:47 Total Bilirubin 0.7 0.6 (0.2-1.0) mg/dL AST 17 10 L (15-37) U/L ALT 22 17 (12-78) U/L Alkaline Phosphatase 137 H 117 (45-117) U/L Albumin 4.1 3.4 D (3.4-5.0) g/dL Urine 01/22/18 Range/Units 11:39 Urine Color Yellow (Yellw/Straw) Urine Clarity Clear (Clear) Urine pH 5.0 (5.0-8.5) Ur Specific [place] 1.018 (1.002-1.035) Urine Protein Negative (Neg-Trace) mg/dL Urine Glucose (UA) Negative (Negative) mg/dL - Imaging Impressions Abdomen/Pelvis CT 01/22/18 11:30 CONCLUSION: 1. 16 mm x 9.5 mm calculus at the right UPJ with mild right hydronephrosis and obstructive uropathy. Additional nonobstructing calculi in both kidneys as above. 2. Splenomegaly to 17.4 cm in length. 3. Small pericardial effusion with pectus deformity. 4. Moderate coronary calcifications. Physical Exam Vital signs: Vital Signs 01/22/18 11:15 01/22/18 11:19 01/22/18 11:49 Temperature 97.2 F L Pulse Rate 81 83 Respiratory Rate 16 18 Blood Pressure 150/67 H 146/67 H Pulse Oximetry 99 99 98 01/22/18 11:59 01/22/18 13:20 01/22/18 17:21 Temperature 98.3 F Pulse Rate 73 80 Respiratory Rate 18 18 Blood Pressure 159/72 H 118/58 L Pulse Oximetry 98 100 96 01/22/18 17:30 01/22/18 17:45 01/22/18 17:54 Temperature 98.5 F Pulse Rate 71 80 Respiratory Rate 18 17 Blood Pressure 115/57 L 120/58 L Pulse Oximetry 96 97 97 01/22/18 18:00 01/22/18 19:00 01/22/18 19:58 Temperature 98.8 F 98.1 F Pulse Rate 64 62 65 Respiratory Rate 20 18 Blood Pressure 126/65 132/62 Pulse Oximetry 97 98 01/22/18 20:00 01/22/18 21:00 01/22/18 22:00 Temperature Pulse Rate 66 72 66 Respiratory Rate Blood Pressure Pulse Oximetry 01/22/18 23:00 01/23/18 00:00 01/23/18 01:00 Temperature 98.5 F Pulse Rate 65 61 56 L Respiratory Rate 18 Blood Pressure 132/71 Pulse Oximetry 96 01/23/18 02:00 01/23/18 03:00 01/23/18 04:00 Temperature 97.7 F Pulse Rate 58 L 64 58 L Respiratory Rate 18 Blood Pressure 119/60 Pulse Oximetry 97 01/23/18 04:42 01/23/18 05:00 01/23/18 06:00 Temperature Pulse Rate 57 L 57 L Respiratory Rate 16 Blood Pressure Pulse Oximetry 01/23/18 07:00 01/23/18 08:00 Temperature 97.8 F Pulse Rate 55 L 55 L Respiratory Rate 17 Blood Pressure 120/66 Pulse Oximetry 97 Intake & Output 01/22/18 01/23/18 01/23/18 18:59 06:59 18:59 Intake Total 500 / 500 480 / 480 Output Total 400 / 400 Balance 500 / 500 80 / 80 Weight 65.771 kg 68 kg Intake: Oral 480 / 480 Anesthesia Amount 500 / 500 Output: Urine 400 / 400 Narrative: GENERAL: Sitting up in bed in no obvious distress. Eating breakfast comfortably. HEAD: Atraumatic. Normocephalic. NECK: Trachea midline. No JVD or lymphadenopathy CARDIOVASCULAR: Regular rate and rhythm. RESPIRATORY: No accessory muscle use. Clear to auscultation. Breath sounds equal bilaterally. GASTROINTESTINAL: Abdomen soft, non-tender, nondistended. MUSCULOSKELETAL: Extremities without clubbing, cyanosis, or edema. No CVA tenderness on exam this morning NEUROLOGICAL: Awake and alert. No obvious cranial nerve deficits. Assessment and Plan - Assessment (1) Hydronephrosis with obstructing calculus Code(s): N13.2 - Hydronephrosis with renal and ureteral calculous obstruction Status: Acute Plan: Status post cystoscopy with double-J stent placement by urology -Plans for future lithotripsy as an outpatient Right sided hydronephrosis with obstructing calculus, 16 mm 9.5 mm at right UPJ. Avoid nephrotoxins, anticoagulants, and NSAIDs Monitor renal function with daily labs Antibiotics: Rocephin 1 g IV daily (2) Leukocytosis Code(s): D72.829 - Elevated white blood cell count, unspecified Status: Acute Plan: Leukocytosis of greater than 50,000 with bandemia of 18% He has been followed by revenue investigator Dr. Sanders with recent bone marrow biopsy 2 months ago per patient -We will attempt to obtain these records Hematology consulted for further evaluation of patient and possible further workup in the hospital (3) Acute renal insufficiency Code(s): N28.9 - Disorder of kidney and ureter, unspecified Status: Acute Plan: Obstructive uropathy with hydronephrosis due to obstructing nephrolithiasis -Status post double-J stent placement from urology Monitor kidney function now that obstruction has been cleared Oral hydration encouraged (4) Nutrition, metabolism, and development symptoms Code(s): R63.8 - Other symptoms and signs concerning food and fluid intake Status: Acute Plan: Fluids: Regular diet Electrolytes: Monitor and replete as needed Nutrition: P.o. (2) Leukocytosis Qualifiers: Leukocytosis type: bandemia Qualified Code(s): D72.825 - Bandemia
--- NOTE | 2018-01-23 19:29 | MB ---
cc: José Armstrong MD DATE: 01/23/2018 REASON FOR CONSULTATION: Consult requested by Dr. Jeong for evaluation of leukocytosis. HISTORY OF PRESENT ILLNESS: Aristeo is a pleasant 77-year-old male. He is under the care of Dr. Sanders for leukocytosis. According to the patient and his , he underwent a bone marrow biopsy 3 months ago, in October. 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 At that point, his white count was around 14,000-15,000, according to the patient's recollection. No treatment was recommended. He was given appointment to see Dr. Sanders in 3 months. That appointment is coming up next week, Tuesday. The patient came into the emergency room yesterday complaining of severe abdominal pain . The workup revealed right kidney stone, which is causing obstruction. Urology was consulted. Dr. Romero saw the patient and put an ureteral stent. He has 16 mm kidney stone at the right UV junction, with mild right hydronephrosis and obstructive uropathy. There are additional nonobstructing calculi noted in both kidneys. The CAT scan also showed that his spleen is enlarged at 17.4 cm. His white count yesterday was 50.9, today is 56.4, hemoglobin is 11.2, today is 9.9, platelet count 370, yesterday and today is 358. I have been asked to see the patient for further evaluation. The patient does not have any fever. He does not have any chills. He has been complaining of right flank pain, which has improved since he had the stent placed in. He denies any shortness of breath or cough. He denies any nausea, vomiting, diarrhea, constipation. His appetite is good. He is anxious to go home. REVIEW OF SYSTEMS: The rest of the review of systems is negative. PAST MEDICAL HISTORY: Recently diagnosed with myeloproliferative disorder. PAST SURGICAL HISTORY: None. ALLERGIES: NONE. MEDICATIONS PRIOR TO COMING TO THE HOSPITAL: None. FAMILY HISTORY: None for malignancy, although his has hepatocellular carcinoma. SOCIAL HISTORY: The patient is . Does not smoke cigarettes, does not drink alcohol. PHYSICAL EXAMINATION: GENERAL: Reveals a well-developed, well-nourished white male, in no apparent distress. VITAL SIGNS: Temperature 97.3, heart rate is 67, blood pressure is 111/57. HEENT: PERRLA, EOMI, anicteric. No oral lesions noted. NECK: No lymphadenopathy noted. LUNGS: Clear. No wheezing, rhonchi or rales. HEART: Regular rate and rhythm. ABDOMEN: Soft. Spleen is palpable and is nontender. EXTREMITIES: No pedal edema. NEUROLOGIC: Awake, alert, oriented x 3. SKIN: No significant lesions are noted. ASSESSMENT: 1. Leukocytosis with left-sided shift, anemia and splenomegaly. This is most consistent with myeloproliferative disorder such as chronic myelomonocytic leukemia until proven otherwise. 2. Bilateral kidney stones. 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 PLAN: I have reviewed his available records and I had an extensive discussion with the patient and his regarding the leukocytosis and anemia. The patient stated that in October, his white count was 14,000-15,000 when he had a bone marrow biopsy with Dr. Sanders. Now, his white count has gone up to 50,000. Hemoglobin is 9.9, platelet count is 358. Yesterday, the differential count showed 1% blasts, but today he does not have any peripheral blast. He has 2% metamyelocytes, 2% myelocytes, 1% basophils and 3% monocytes, 18% bands and 59% neutrophils. He also has anemia with a hemoglobin of 9.9. His spleen is palpable. I asked the patient and his whether they were told that the [place] chromosome was negative or positive or JAK2 mutation was positive. According to the 's recollection, they were told that the JAK2 was positive, but they are not sure. No records from Dr. Sanders's office available at this time. I personally called Dr. Sanders and waiting for him to return my call back to discuss the case with him. I have also discussed with the patient's nurse to obtain records from Dr. Warren' office. I do not think that his leukocytosis is due to the infection. From my standpoint, he is cleared to undergo lithotripsy. I had called his urologist, Dr. Romero, and cleared him for lithotripsy. I have ordered anemia workup with serum folate, B12, iron studies. I will also get uric acid, as I suspect that the kidney stones are due to hyperuricemia coming from myeloproliferative disorder. I will also start him on allopurinol 100 mg daily for now. I will also get the BCR-ABL by FISH to make sure that we are not dealing with chronic myeloid leukemia. I am pretty sure that Dr. Sanders has already checked the BCR-ABL, but the patient and his both do not recall. The patient does not appear to be toxic. He does not have any infection in my opinion. The leukocytosis is due to progressive myeloproliferative disorder. The patient most likely will start on either Hydrea or Jakifi if JAK2 mutation is positive. Further recommendations based on his hospital stay. Thank you for asking my opinion. MD CESAR Gutierrez/KIRBY , 06:33 PM , 06:51 PM JANESSA
[2018-01-23 21:00] LABS: Iron 145 mcg/dL (65-175); Uric Acid 9.7 mg/dl (2.6-7.2)
[2018-01-23 21:25] LABS: % Iron Saturation 68.1 % (20-50); Ferritin 236 ng/mL (26-388); Folate 12.5 ng/mL (3.1-17.5); Lactate Dehydrogenase 274 U/L (87-241); Total Iron Binding Capacity 213 mcg/dL (250-450)
--- NOTE | 2018-01-24 07:50 | ECG ---
Date Performed: 01/22/2018 Time Performed: 15:51:49 PTAGE: 77 years EKG: Sinus rhythm MINIMAL VOLTAGE CRITERIA FOR LVH, CONSIDER NORMAL VARIANT ANTERIOR MYOCARDIAL INFARCTION INFERIOR MY OCARDIAL INFARCTION ABNORMAL ECG PREVIOUS TRACING : 01/10/2016 14.02 DOCTOR: Elana Sousa Interpretating Date/Time 01/24/2018 07:41:44
[2018-01-24 08:13] LABS: Baso # (Auto) 0.4 th/mm3 (0.0-0.2); Baso % (Auto) 0.9 % (0.0-2.0); Eos # (Auto) 0.5 th/mm3 (0.0-0.4); Eos % (Auto) 1.2 % (0.0-4.0); Hematocrit 31.1 % (39.0-51.0); Hemoglobin 10.2 gm/dL (13.0-17.0); Lymph # (Auto) 1.2 th/mm3 (1.0-4.8); Lymph % (Auto) 2.6 % (9.0-44.0); Mean Corpuscular HGB Conc 32.7 % (32.0-36.0); Mean Corpuscular Volume 79.5 fL (80.0-100.0); Mean Platelet Volume 8.5 fL (7.0-11.0); Mono # (Auto) 0.8 th/mm3 (0.0-0.9); Mono % (Auto) 1.9 % (0.0-8.0); Neut # (Auto) 41.6 th/mm3 (1.8-7.7); Neut % (Auto) 93.4 % (16.0-70.0); Platelet Count 362 th/mm3 (150-450); Red Blood Count 3.91 mil/mm3 (4.50-5.90); Red Cell Distribution Width 27.5 % (11.6-17.2); White Blood Count 44.5 th/mm3 (4.0-11.0)
[2018-01-24 08:37] LABS: Calcium 8.4 mg/dL (8.5-10.1); Carbon Dioxide 24.5 meq/L (21.0-32.0); Potassium 4.1 meq/L (3.5-5.1)
[2018-01-24 09:00] LABS: Eosinophils 1 % (0-4); Lymphocytes 11 % (9-44); Metamyelocytes 2 % (0-1); Myelocytes 3 % (0-0); Promyelocyte 3 % (0-0)
[2018-01-24 09:01] LABS: Ovalocytes 2+; Platelet Estimate Normal (Normal); Platelet Morphology Normal (Normal); Tear Drop Cells 1+
[2018-01-24] MEDS: Allopurinol 100 MG Tablet PO SCH (09:24)
--- NOTE | 2018-01-24 10:46 | P.PNURO ---
Subjective Patient symptoms today: Pt seen and examined. Feels well. Objective Vital Signs: Vital Signs 01/23/18 11:00 01/23/18 11:41 01/23/18 12:00 Temperature 98.2 F Pulse Rate 60 62 Respiratory Rate 17 Blood Pressure 108/55 L Pulse Oximetry 96 96 01/23/18 12:28 01/23/18 13:00 01/23/18 15:00 Temperature Pulse Rate 62 65 59 L Respiratory Rate Blood Pressure Pulse Oximetry 01/23/18 15:50 01/23/18 17:00 01/23/18 18:00 Temperature 97.3 F L Pulse Rate 67 65 64 Respiratory Rate 18 Blood Pressure 111/57 L Pulse Oximetry 01/23/18 19:00 01/23/18 20:00 01/23/18 21:00 Temperature 98.2 F Pulse Rate 64 70 70 Respiratory Rate 18 Blood Pressure 112/60 Pulse Oximetry 93 L 01/23/18 22:00 01/23/18 23:00 01/23/18 23:47 Temperature 98.4 F Pulse Rate 68 66 64 Respiratory Rate 20 20 Blood Pressure 114/59 L Pulse Oximetry 95 95 01/24/18 00:00 01/24/18 01:00 01/24/18 02:00 Temperature Pulse Rate 63 64 66 Respiratory Rate Blood Pressure Pulse Oximetry 01/24/18 03:00 01/24/18 03:38 01/24/18 04:00 Temperature 98.1 F Pulse Rate 68 70 76 Respiratory Rate 20 Blood Pressure 115/64 Pulse Oximetry 93 L 93 L 01/24/18 04:55 01/24/18 05:57 01/24/18 07:00 Temperature Pulse Rate 72 76 82 Respiratory Rate Blood Pressure Pulse Oximetry 96 01/24/18 08:00 Temperature Pulse Rate 89 Respiratory Rate 18 Blood Pressure 121/54 L Pulse Oximetry 96 Intake & Output 01/23/18 01/24/18 01/24/18 18:59 06:59 18:59 Intake Total 700 / 700 480 / 480 Output Total 300 / 300 650 / 650 Balance 400 / 400 -170 / -170 Weight 67.755 kg 66.5 kg Intake: IV 100 / 100 Rocephin Inj 1,000 MG In NS Inj 100 / 100 100 ML @ 200 mls/hr IV.SIG Q24H MOHAN Rx#:[id number] Oral 600 / 600 480 / 480 Output: Urine 300 / 300 650 / 650 Other: # Voids 4 Date of Last Bowel Movement 01/21/18 Weight On Admission 67.982 kg Result Diagrams: 01/24/18 07:20 01/24/18 07:20 Medications and IVs: Active Medications Generic Name Dose Route Start Last Admin Trade Name Freq PRN Reason Stop Dose Admin Acetaminophen 650 mg 01/23/18 00:32 Tylenol PO Q6HR PRN PAIN SCALE 1 TO 2 Hydrocodone Bitart/Acetaminophen 1 tab 01/23/18 00:32 01/23/18 22:21 [place] 5/325 PO 1 tab Q4H PRN Administration PAIN SCALE 3 TO 5 Allopurinol 100 mg 01/23/18 18:30 01/24/18 09:24 Zyloprim PO 100 mg DAILY MOHAN Administration Ceftriaxone Sodium 1,000 mg/ 100 mls @ 200 mls/hr 01/23/18 09:00 01/24/18 09: 25 Sodium Chloride IV.SIG 100 mls/hr Q24H MOHAN Administration Morphine Sulfate 4 mg 01/23/18 00:32 Morphine Inj IV.PUSH Q3H PRN BREAKTHROUGH PAIN Naloxone HCl 0.4 mg 01/23/18 00:32 Narcan Inj IV.PUSH UNSCH PRN SEE LABEL COMMENTS Oxycodone/Acetaminophen 1 tab 01/22/18 17:20 01/22/18 22:10 Percocet 5/325 Mg PO 01/25/18 23:59 1 tab Q6H PRN Administration ABDOMINAL PAIN Oxycodone/Acetaminophen 1 tab 01/23/18 00:32 01/23/18 01:06 Percocet 10/325 Mg PO 1 tab Q6H PRN Administration PAIN SCALE 6 TO 10 Objective Remarks: Abd:soft,nt,nd Urine: aimee in color Abd:soft,nt,nd Urine: clear Assessment and Plan - Plan Stable s/p right JJ stent insertion Will require right ESWL as outpt Avoid anticoagulate medication/NSAIDS 01/24 77 y.o male with right renal stone s/p right JJ stent Plan for right ESWL in AM NPO after MN.
--- NOTE | 2018-01-24 10:50 | P.PNFP ---
Subjective Interval history: Patient seen with resident team on medical rounds this morning. His only complaint is that of some continued burning with urination and discomfort where he feels that the double-J tube was inserted. He states that he is feeling well and is tolerating a diet without issue. 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 Otherwise he denies any hematuria, denies any abdominal pain, denies any flank pain, denies any fevers or chills, denies any nausea or vomiting, denies any chest pain or palpitations. Results - Labs Result diagrams: 01/24/18 07:20 01/24/18 07:20 Abnormal lab results 01/23/18 01/24/18 01/24/18 Range/Units 06:47 07:20 07:20 WBC 44.5 H (4.0-11.0) th/mm3 RBC 3.91 L (4.50-5.90) mil/mm3 Hgb 10.2 L (13.0-17.0) gm/dL Hct 31.1 L (39.0-51.0) % MCV 79.5 L (80.0-100.0) fL MCH 26.0 L (27.0-34.0) pg RDW 27.5 H (11.6-17.2) % Neut % (Auto) 93.4 H (16.0-70.0) % Lymph % (Auto) 2.6 L (9.0-44.0) % Neut # (Auto) 41.6 H (1.8-7.7) th/mm3 Eos # (Auto) 0.5 H (0.0-0.4) th/mm3 Baso # (Auto) 0.4 H (0.0-0.2) th/mm3 Band Neuts % (Manual) 13 H (0-6) % Metamyelocytes % (Man) 2 H (0-1) % Myelocytes % (Man) 3 H (0-0) % Promyelocytes % (Man) 3 H (0-0) % Abs Neuts (Manual) 38.3 H (1.8-7.7) th/mm3 Tear Drop Cells 1+ H (None) Ovalocytes 2+ H (None) BUN 30 H (7-18) mg/dL Creatinine 1.42 H (0.60-1.30) mg/dL Estimated GFR 48 L (>89) mL/min Uric Acid 9.7 H (2.6-7.2) mg/dl Calcium 8.4 L (8.5-10.1) mg/dL TIBC 213 L (250-450) mcg/dL % Saturation 68.1 H (20-50) % Lactate Dehydrogenase 274 H (87-241) U/L Vitamin B12 Greater than 2000 H (193-986) pg/mL Short CBC 01/24/18 Range/Units 07:20 WBC 44.5 H (4.0-11.0) th/mm3 Hgb 10.2 L (13.0-17.0) gm/dL Hct 31.1 L (39.0-51.0) % Plt Count 362 (150-450) th/mm3 BMP 01/24/18 07:20 Sodium 140 Potassium 4.1 Chloride 107 Carbon Dioxide 24.5 BUN 30 H Creatinine 1.42 H Calcium 8.4 L Physical Exam Vital signs: Vital Signs 01/23/18 11:00 01/23/18 11:41 01/23/18 12:00 Temperature 98.2 F Pulse Rate 60 62 Respiratory Rate 17 Blood Pressure 108/55 L Pulse Oximetry 96 96 01/23/18 12:28 01/23/18 13:00 01/23/18 15:00 Temperature Pulse Rate 62 65 59 L Respiratory Rate Blood Pressure Pulse Oximetry 01/23/18 15:50 01/23/18 17:00 01/23/18 18:00 Temperature 97.3 F L Pulse Rate 67 65 64 Respiratory Rate 18 Blood Pressure 111/57 L Pulse Oximetry 01/23/18 19:00 01/23/18 20:00 01/23/18 21:00 Temperature 98.2 F Pulse Rate 64 70 70 Respiratory Rate 18 Blood Pressure 112/60 Pulse Oximetry 93 L 01/23/18 22:00 01/23/18 23:00 01/23/18 23:47 Temperature 98.4 F Pulse Rate 68 66 64 Respiratory Rate 20 20 Blood Pressure 114/59 L Pulse Oximetry 95 95 01/24/18 00:00 01/24/18 01:00 01/24/18 02:00 Temperature Pulse Rate 63 64 66 Respiratory Rate Blood Pressure Pulse Oximetry 01/24/18 03:00 01/24/18 03:38 01/24/18 04:00 Temperature 98.1 F Pulse Rate 68 70 76 Respiratory Rate 20 Blood Pressure 115/64 Pulse Oximetry 93 L 93 L 01/24/18 04:55 01/24/18 05:57 01/24/18 07:00 Temperature Pulse Rate 72 76 82 Respiratory Rate Blood Pressure Pulse Oximetry 96 01/24/18 08:00 Temperature Pulse Rate 89 Respiratory Rate 18 Blood Pressure 121/54 L Pulse Oximetry 96 Intake & Output 01/23/18 01/24/18 01/24/18 18:59 06:59 18:59 Intake Total 700 / 700 480 / 480 Output Total 300 / 300 650 / 650 Balance 400 / 400 -170 / -170 Weight 67.755 kg 66.5 kg Intake: IV 100 / 100 Rocephin Inj 1,000 MG In NS Inj 100 / 100 100 ML @ 200 mls/hr IV.SIG Q24H [facility] Rx#:[id number] Oral 600 / 600 480 / 480 Output: Urine 300 / 300 650 / 650 Other: # Voids 4 Date of Last Bowel Movement 01/21/18 Weight On Admission 67.982 kg Narrative: General: Elderly male, sitting up in bed in no obvious distress HEENT: No cervical lymphadenopathy CV: Regular rate and rhythm without murmur Pulmonary: Clear to auscultation bilaterally without wheezing or rhonchi Abdomen: Soft, nondistended, mildly tender in the left upper quadrant Assessment and Plan - Assessment (1) Hydronephrosis with obstructing calculus Code(s): N13.2 - Hydronephrosis with renal and ureteral calculous obstruction Status: Acute Plan: Status post cystoscopy with double-J stent placement by urology on 01/22/18 -Discussed the case with Dr. Romero and he is on the schedule for lithotripsy tomorrow morning N.p.o. after midnight in preparation for lithotripsy in the OR Avoid nephrotoxins, anticoagulants, and NSAIDs Monitor renal function with daily labs -Creatinine has improved to 1.42 today Antibiotics: Rocephin 1 g IV daily (2) Leukocytosis Code(s): D72.829 - Elevated white blood cell count, unspecified Status: Acute Plan: Hematology consult placed and patient was seen by Dr. Armstrong -appreciate recommendations -He does not feel this leukocytosis is related to an infection from the nephrolithiasis Started on allopurinol due to elevated uric acid levels Lab work pending: - serum folate 12.5 - B12 greater than 2000 - LDH 274 - iron studies - BCR/abl FISH interpretation pending (evaluation for CML) - peripheral blood smear pending Patient has been undergoing an outpatient workup with Dr. Sanders and will continue this upon discharge (3) Acute renal insufficiency Code(s): N28.9 - Disorder of kidney and ureter, unspecified Status: Acute Plan: Obstructive uropathy with hydronephrosis due to obstructing nephrolithiasis -Status post double-J stent placement from urology Monitor kidney function now that obstruction has been cleared Oral hydration encouraged (4) Nutrition, metabolism, and development symptoms Code(s): R63.8 - Other symptoms and signs concerning food and fluid intake Status: Acute Plan: Fluids: Regular diet until midnight and then NPO for lithotripsy Electrolytes: Monitor and replete as needed Nutrition: P.o. (2) Leukocytosis Qualifiers: Leukocytosis type: bandemia Qualified Code(s): D72.825 - Bandemia
--- NOTE | 2018-01-24 17:56 | P.PNONC ---
Subjective Interval history: Late entry: Pt seen this a.m. --Afebrile, lying in bed, visiting with his . --Awaiting lithotripsy tomorrow. --No reported c/o at this time. Objective Vital Signs/Intake & Output: Vital Signs 01/23/18 18:00 01/23/18 19:00 01/23/18 20:00 Temperature 98.2 F Pulse Rate 64 64 70 Respiratory Rate 18 Blood Pressure 112/60 Pulse Oximetry 93 L 01/23/18 21:00 01/23/18 22:00 01/23/18 23:00 Temperature Pulse Rate 70 68 66 Respiratory Rate 20 Blood Pressure Pulse Oximetry 95 01/23/18 23:47 01/24/18 00:00 01/24/18 01:00 Temperature 98.4 F Pulse Rate 64 63 64 Respiratory Rate 20 Blood Pressure 114/59 L Pulse Oximetry 95 01/24/18 02:00 01/24/18 03:00 01/24/18 03:38 Temperature 98.1 F Pulse Rate 66 68 70 Respiratory Rate 20 Blood Pressure 115/64 Pulse Oximetry 93 L 93 L 01/24/18 04:00 01/24/18 04:55 01/24/18 05:57 Temperature Pulse Rate 76 72 76 Respiratory Rate Blood Pressure Pulse Oximetry 01/24/18 07:00 01/24/18 08:00 01/24/18 09:00 Temperature Pulse Rate 82 89 88 Respiratory Rate 18 Blood Pressure 121/54 L Pulse Oximetry 96 96 01/24/18 10:00 01/24/18 11:00 01/24/18 12:00 Temperature Pulse Rate 84 88 82 Respiratory Rate 18 Blood Pressure 127/62 Pulse Oximetry 97 97 01/24/18 13:00 01/24/18 14:00 01/24/18 15:00 Temperature Pulse Rate 86 82 83 Respiratory Rate Blood Pressure Pulse Oximetry 01/24/18 16:00 Temperature Pulse Rate 80 Respiratory Rate 20 Blood Pressure 136/72 Pulse Oximetry 97 Intake & Output 01/23/18 01/24/18 01/24/18 18:59 06:59 18:59 Intake Total 700 / 700 480 / 480 Output Total 300 / 300 650 / 650 Balance 400 / 400 -170 / -170 Weight 67.755 kg 66.5 kg Intake: IV 100 / 100 Rocephin Inj 1,000 MG In NS Inj 100 / 100 100 ML @ 200 mls/hr IV.SIG Q24H [facility] Rx#:[id number] Oral 600 / 600 480 / 480 Output: Urine 300 / 300 650 / 650 Other: # Voids 4 Date of Last Bowel Movement 01/21/18 Weight On Admission 67.982 kg Result Diagrams: 01/24/18 07:20 01/24/18 07:20 Laboratory Results: Laboratory Results - last 24 hr 01/23/18 01/24/18 01/24/18 06:47 07:20 07:20 WBC 44.5 H RBC 3.91 L Hgb 10.2 L Hct 31.1 L MCV 79.5 L MCH 26.0 L MCHC 32.7 RDW 27.5 H Plt Count 362 MPV 8.5 Prelim Diff (Auto) Slide review pending Neut % (Auto) 93.4 H Lymph % (Auto) 2.6 L [place] % (Auto) 1.9 Eos % (Auto) 1.2 Baso % (Auto) 0.9 Neut # (Auto) 41.6 H Lymph # (Auto) 1.2 [place] # (Auto) 0.8 Eos # (Auto) 0.5 H Baso # (Auto) 0.4 H WBC Differential Manual diff final Seg Neuts % (Manual) 65 Band Neuts % (Manual) 13 H Lymphocytes % (Manual) 11 Eosinophils % (Manual) 1 Basophils % (Manual) 2 Metamyelocytes % (Man) 2 H Myelocytes % (Man) 3 H Promyelocytes % (Man) 3 H Abs Neuts (Manual) 38.3 H Differential Comment . Platelet Estimate Normal Platelet Morphology Normal Tear Drop Cells 1+ H Ovalocytes 2+ H Sodium 140 Potassium 4.1 Chloride 107 Carbon Dioxide 24.5 Anion Gap 9 BUN 30 H Creatinine 1.42 H Estimated GFR 48 L Random Glucose 76 Uric Acid 9.7 H Calcium 8.4 L Iron 145 TIBC 213 L % Saturation 68.1 H Ferritin 236 Lactate Dehydrogenase 274 H Vitamin B12 Greater than 2000 H Folate 12.5 Culture Results: Microbiology 01/22/18 13:19 Aerobic Blood Culture - Preliminary Blood - Peripheral No growth in 2 days Anaerobic Blood Culture - Preliminary No growth in 2 days 01/22/18 13:09 Aerobic Blood Culture - Preliminary Blood - Peripheral No growth in 2 days Anaerobic Blood Culture - Preliminary No growth in 2 days Medications: Active Medications Generic Name Dose Route Start Last Admin Trade Name Freq PRN Reason Stop Dose Admin Hydrocodone Bitart/Acetaminophen 1 tab 01/23/18 00:32 01/23/18 22:21 [place] 5/325 PO 1 tab Q4H PRN Administration PAIN SCALE 3 TO 5 Allopurinol 100 mg 01/23/18 18:30 01/24/18 09:24 Zyloprim PO 100 mg DAILY [facility] Administration Ceftriaxone Sodium 1,000 mg/ 100 mls @ 200 mls/hr 01/23/18 09:00 01/24/18 09: 25 Sodium Chloride IV.SIG 100 mls/hr Q24H [facility] Administration Oxycodone/Acetaminophen 1 tab 01/22/18 17:20 01/22/18 22:10 Percocet 5/325 Mg PO 01/25/18 23:59 1 tab Q6H PRN Administration ABDOMINAL PAIN Oxycodone/Acetaminophen 1 tab 01/23/18 00:32 01/23/18 01:06 Percocet 10/325 Mg PO 1 tab Q6H PRN Administration PAIN SCALE 6 TO 10 Objective Remarks: GENERAL: Well-nourished, well-developed elderly male patient.In no distress. SKIN: Warm and dry. HEAD: Normocephalic. EYES: No scleral icterus. No injection or drainage. NECK: Supple, trachea midline. CARDIOVASCULAR: Regular rate and rhythm without murmurs. RESPIRATORY: Breath sounds clear, equal bilaterally. Non-labored. GASTROINTESTINAL: Abdomen soft, non-tender, nondistended, +BS. EXTREMITIES: No cyanosis, or edema. MUSCULOSKELETAL: Adequate muscle tone. NEUROLOGICAL: No obvious focal deficit. Awake, alert, and oriented x3. PSYCHIATRIC: Appropriate mood and affect; insight and judgment normal. Assessment/Plan - Plan Mr. Bhatt is a pleasant 77-year-old gentlemen, who is under the care of Dr. Sanders for leukocytosis. 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 According to the patients , in October , he had a bone marrow biopsy and his white count was around 14,000-15,000. No treatment was recommended. He was given appointment to see Dr. Sanders in 3 months , which is scheduled for next week. This hospitalization the pt came into the emergency room complaining of severe abdominal pain . He was found to have a right kidney stone, which is causing obstruction. Urology was consulted, Dr. Romero placed a ureteral stent. There are additional nonobstructing calculi noted in both kidneys. Plan: 1. Leukocytosis, counts improving today. This is not thought to be related to infection, rather the myloproliferative disorder. The patient has been cleared for lithotripsy. 2. Myeloproliferative disorder. BCR-ABL by FISH is pending. Awaiting records from Dr. Sanders, pt's oncologist. 3. Anemia studies show normal iron 145, TIBC 213, % sat 68.1, Ferritin 236, B12 > 2000, folate 12.5. 4. Calculi, uric acid 9.7. Continue allopurinol. Pending lithotripsy tomorrow.
[2018-01-25 07:52] LABS: Baso # (Auto) 0.2 th/mm3 (0.0-0.2); Baso % (Auto) 0.5 % (0.0-2.0); Eos # (Auto) 0.3 th/mm3 (0.0-0.4); Eos % (Auto) 0.8 % (0.0-4.0); Lymph # (Auto) 1.3 th/mm3 (1.0-4.8); Lymph % (Auto) 3.1 % (9.0-44.0); Mean Corpuscular HGB Conc 33.4 % (32.0-36.0); Mean Corpuscular Hemoglobin 26.5 pg (27.0-34.0); Mean Corpuscular Volume 79.4 fL (80.0-100.0); Mean Platelet Volume 8.5 fL (7.0-11.0); Mono # (Auto) 1.2 th/mm3 (0.0-0.9); Mono % (Auto) 2.8 % (0.0-8.0); Neut # (Auto) 39.9 th/mm3 (1.8-7.7); Neut % (Auto) 92.8 % (16.0-70.0); Platelet Count 340 th/mm3 (150-450); Red Blood Count 3.77 mil/mm3 (4.50-5.90); Red Cell Distribution Width 27.5 % (11.6-17.2); White Blood Count 42.9 th/mm3 (4.0-11.0)
[2018-01-25 07:56] VITALS: RESP 18
[2018-01-25 08:28] LABS: Calcium 8.8 mg/dL (8.5-10.1); Carbon Dioxide 24.3 meq/L (21.0-32.0); Potassium 3.9 meq/L (3.5-5.1)
[2018-01-25 08:36] LABS: Eosinophils 1 % (0-4); Lymphocytes 6 % (9-44); Metamyelocytes 4 % (0-1); Monocytes 1 % (0-8); Myelocytes 9 % (0-0); Ovalocytes 1+; Platelet Estimate Normal (Normal); Platelet Morphology Normal (Normal); Promyelocyte 1 % (0-0); Tallied Nucleated RBC 1 (0-0)
[2018-01-25] MEDS: Allopurinol 100 MG Tablet PO SCH (08:41)
--- NOTE | 2018-01-25 10:05 | P.PNFP ---
Subjective Interval history: Patient seen and examined this morning. No acute events overnight. Denies nausea, vomiting, fever, chills. Endorses some mild burning on urination, ever since cystoscopy, improving. No other changes to urination. Denies abdominal or back pain. No other complaints today. <Stephon Mukherjee - 01/25/18 10:04> Results - Labs Result diagrams: 01/25/18 06:21 01/25/18 06:21 <Dimitri Jeong - 01/25/18 14:59> Abnormal lab results 01/25/18 01/25/18 Range/Units 06:21 06:21 WBC 42.9 H (4.0-11.0) th/mm3 RBC 3.77 L (4.50-5.90) mil/mm3 Hgb 10.0 L (13.0-17.0) gm/dL Hct 30.0 L (39.0-51.0) % MCV 79.4 L (80.0-100.0) fL MCH 26.5 L (27.0-34.0) pg RDW 27.5 H (11.6-17.2) % Neut % (Auto) 92.8 H (16.0-70.0) % Lymph % (Auto) 3.1 L (9.0-44.0) % Neut # (Auto) 39.9 H (1.8-7.7) th/mm3 [place] # (Auto) 1.2 H (0.0-0.9) th/mm3 Band Neuts % (Manual) 12 H (0-6) % Lymphocytes % (Manual) 6 L (9-44) % Metamyelocytes % (Man) 4 H (0-1) % Myelocytes % (Man) 9 H (0-0) % Promyelocytes % (Man) 1 H (0-0) % Abs Neuts (Manual) 39.0 H (1.8-7.7) th/mm3 Nucleated RBCs/100 WBC 1 H (0-0) /100 WBC Ovalocytes 1+ H (None) BUN 25 H (7-18) mg/dL Creatinine 1.34 H (0.60-1.30) mg/dL Estimated GFR 52 L (>89) mL/min Random Glucose 68 L (74-106) mg/dL Short CBC 01/25/18 Range/Units 06:21 WBC 42.9 H (4.0-11.0) th/mm3 Hgb 10.0 L (13.0-17.0) gm/dL Hct 30.0 L (39.0-51.0) % Plt Count 340 (150-450) th/mm3 [facility] 01/25/18 06:21 Sodium 142 Potassium 3.9 Chloride 107 Carbon Dioxide 24.3 BUN 25 H Creatinine 1.34 H Calcium 8.8 <Dimitri Jeong - 01/25/18 14:59> Abnormal lab results 01/25/18 01/25/18 Range/Units 06:21 06:21 WBC 42.9 H (4.0-11.0) th/mm3 RBC 3.77 L (4.50-5.90) mil/mm3 Hgb 10.0 L (13.0-17.0) gm/dL Hct 30.0 L (39.0-51.0) % MCV 79.4 L (80.0-100.0) fL MCH 26.5 L (27.0-34.0) pg RDW 27.5 H (11.6-17.2) % Neut % (Auto) 92.8 H (16.0-70.0) % Lymph % (Auto) 3.1 L (9.0-44.0) % Neut # (Auto) 39.9 H (1.8-7.7) th/mm3 [place] # (Auto) 1.2 H (0.0-0.9) th/mm3 Band Neuts % (Manual) 12 H (0-6) % Lymphocytes % (Manual) 6 L (9-44) % Metamyelocytes % (Man) 4 H (0-1) % Myelocytes % (Man) 9 H (0-0) % Promyelocytes % (Man) 1 H (0-0) % Abs Neuts (Manual) 39.0 H (1.8-7.7) th/mm3 Nucleated RBCs/100 WBC 1 H (0-0) /100 WBC Ovalocytes 1+ H (None) BUN 25 H (7-18) mg/dL Creatinine 1.34 H (0.60-1.30) mg/dL Estimated GFR 52 L (>89) mL/min Random Glucose 68 L (74-106) mg/dL Short CBC 01/25/18 Range/Units 06:21 WBC 42.9 H (4.0-11.0) th/mm3 Hgb 10.0 L (13.0-17.0) gm/dL Hct 30.0 L (39.0-51.0) % Plt Count 340 (150-450) th/mm3 BMP 01/25/18 06:21 Sodium 142 Potassium 3.9 Chloride 107 Carbon Dioxide 24.3 BUN 25 H Creatinine 1.34 H Calcium 8.8 <Faille,Dillan - 01/25/18 10:04> Physical Exam Vital signs: Vital Signs 01/24/18 15:00 01/24/18 16:00 01/24/18 17:00 Temperature Pulse Rate 83 80 80 Respiratory Rate 20 Blood Pressure 136/72 Pulse Oximetry 97 01/24/18 18:00 01/24/18 19:00 01/24/18 20:00 Temperature 98.8 F Pulse Rate 92 H 92 H 86 Respiratory Rate 18 Blood Pressure 143/76 H Pulse Oximetry 96 96 01/24/18 21:00 01/24/18 22:00 01/24/18 23:00 Temperature 98.9 F Pulse Rate 94 H 84 78 Respiratory Rate 16 Blood Pressure 139/74 Pulse Oximetry 94 L 01/25/18 00:00 01/25/18 01:00 01/25/18 02:00 Temperature Pulse Rate 78 74 74 Respiratory Rate Blood Pressure Pulse Oximetry 01/25/18 03:00 01/25/18 04:00 01/25/18 05:00 Temperature 99.3 F Pulse Rate 75 80 80 Respiratory Rate 16 Blood Pressure 138/70 Pulse Oximetry 97 01/25/18 06:00 01/25/18 07:00 01/25/18 08:00 Temperature 98.4 F Pulse Rate 74 86 82 Respiratory Rate 18 Blood Pressure 127/66 Pulse Oximetry 97 01/25/18 09:00 01/25/18 10:00 01/25/18 11:00 Temperature Pulse Rate 77 84 Respiratory Rate Blood Pressure Pulse Oximetry 97 01/25/18 12:00 01/25/18 13:00 01/25/18 13:56 Temperature 97.5 F L Pulse Rate 94 H 80 84 Respiratory Rate 14 Blood Pressure 131/64 Pulse Oximetry 96 01/25/18 14:00 01/25/18 14:15 01/25/18 14:20 Temperature 97.6 F Pulse Rate 78 78 79 Respiratory Rate 14 14 14 Blood Pressure 127/64 114/55 L Pulse Oximetry 96 92 L 95 01/25/18 14:39 01/25/18 14:40 Temperature 98.0 F Pulse Rate 77 Respiratory Rate 18 Blood Pressure 124/68 Pulse Oximetry 95 97 Intake & Output 01/24/18 01/25/18 01/25/18 18:59 06:59 18:59 Intake Total 580 / 580 550 / 550 Output Total 1725 / 1725 100 / 100 Balance -1145 / -1145 450 / 450 Weight 65 kg Intake: IV 100 / 100 100 / 100 Rocephin Inj 1,000 MG In NS Inj 100 / 100 100 / 100 100 ML @ 200 mls/hr IV.SIG Q24H [facility] Rx#:[id number] Oral 480 / 480 Anesthesia Amount 450 / 450 Output: Urine 1725 / 1725 100 / 100 Other: # Voids 1 Date of Last Bowel Movement 01/21/18 <Dimitri Jeong 01/25/18 14:59> Vital Signs 01/24/18 11:00 01/24/18 12:00 01/24/18 13:00 Temperature Pulse Rate 88 82 86 Respiratory Rate 18 Blood Pressure 127/62 Pulse Oximetry 97 97 01/24/18 14:00 01/24/18 15:00 01/24/18 16:00 Temperature Pulse Rate 82 83 80 Respiratory Rate 20 Blood Pressure 136/72 Pulse Oximetry 97 01/24/18 17:00 01/24/18 18:00 01/24/18 19:00 Temperature Pulse Rate 80 92 H 92 H Respiratory Rate Blood Pressure Pulse Oximetry 96 01/24/18 20:00 01/24/18 21:00 01/24/18 22:00 Temperature 98.8 F Pulse Rate 86 94 H 84 Respiratory Rate 18 Blood Pressure 143/76 H Pulse Oximetry 96 01/24/18 23:00 01/25/18 00:00 01/25/18 01:00 Temperature 98.9 F Pulse Rate 78 78 74 Respiratory Rate 16 Blood Pressure 139/74 Pulse Oximetry 94 L 01/25/18 02:00 01/25/18 03:00 01/25/18 04:00 Temperature 99.3 F Pulse Rate 74 75 80 Respiratory Rate 16 Blood Pressure 138/70 Pulse Oximetry 97 01/25/18 05:00 01/25/18 06:00 01/25/18 07:00 Temperature 98.4 F Pulse Rate 80 74 86 Respiratory Rate 18 Blood Pressure 127/66 Pulse Oximetry 97 01/25/18 08:00 01/25/18 09:00 Temperature Pulse Rate 82 77 Respiratory Rate Blood Pressure Pulse Oximetry Intake & Output 01/24/18 01/25/18 01/25/18 18:59 06:59 18:59 Intake Total 580 / 580 Output Total 1725 / 1725 100 / 100 Balance -1145 / -1145 -100 / -100 Weight 65 kg Intake: IV 100 / 100 Rocephin Inj 1,000 MG In NS Inj 100 / 100 100 ML @ 200 mls/hr IV.SIG Q24H [facility] Rx#:[id number] Oral 480 / 480 Output: Urine 1725 / 1725 100 / 100 Other: # Voids 1 Date of Last Bowel Movement 01/21/18 <Stephon Mukherjee - 01/25/18 10:04> Narrative: General: Elderly male, sitting up in bed in no obvious distress HEENT: No cervical lymphadenopathy CV: Regular rate and rhythm without murmur Pulmonary: Clear to auscultation bilaterally without wheezing or rhonchi Abdomen: Soft, nondistended, mildly tender in the left upper quadrant <Stephon Mukherjee - 01/25/18 10:04> Assessment and Plan - Assessment (1) Hydronephrosis with obstructing calculus Code(s): N13.2 - Hydronephrosis with renal and ureteral calculous obstruction Status: Acute (2) Leukocytosis Code(s): D72.829 - Elevated white blood cell count, unspecified Status: Acute (3) Acute renal insufficiency Code(s): N28.9 - Disorder of kidney and ureter, unspecified Status: Acute (4) Nutrition, metabolism, and development symptoms Code(s): R63.8 - Other symptoms and signs concerning food and fluid intake Status: Acute <Dimitri Jeong - 01/25/18 14:59> (1) Hydronephrosis with obstructing calculus Code(s): N13.2 - Hydronephrosis with renal and ureteral calculous obstruction Status: Acute Plan: Status post cystoscopy with double-J stent placement by urology on 01/22/18 -To have lithotripsy today N.p.o. after midnight in preparation for lithotripsy Avoid nephrotoxins, anticoagulants, and NSAIDs Monitor renal function with daily labs -Creatinine has improved to 1.34 today Antibiotics: Rocephin 1 g IV daily (2) Leukocytosis Code(s): D72.829 - Elevated white blood cell count, unspecified Status: Acute Plan: Hematology consult placed and patient was seen by Dr. Armstrong -appreciate recommendations -He does not feel this leukocytosis is related to an infection from the nephrolithiasis Started on allopurinol due to elevated uric acid levels Lab work pending: - serum folate 12.5 - B12 greater than 2000 - LDH 274 - iron studies - BCR/abl FISH interpretation pending (evaluation for CML) - peripheral blood smear pending Patient has been undergoing an outpatient workup with Dr. Sanders and will continue this upon discharge (3) Acute renal insufficiency Code(s): N28.9 - Disorder of kidney and ureter, unspecified Status: Acute Plan: Obstructive uropathy with hydronephrosis due to obstructing nephrolithiasis -Status post double-J stent placement from urology Monitor kidney function now that obstruction has been cleared Oral hydration encouraged (4) Nutrition, metabolism, and development symptoms Code(s): R63.8 - Other symptoms and signs concerning food and fluid intake Status: Acute Plan: Fluids: NPO for lithotripsy, regular after Electrolytes: Monitor and replete as needed Nutrition: P.o. <Stephon Mukherjee - 01/25/18 10:01> - Attending Attestation Pt. examined and case discussed with resident physicians. I have read the above note and agree with the assessment and plan as discussed with me. I was involved in all medical decision making for this patient. Dimitri Jeong MD <Dimitri Jeong - 01/25/18 14:59> <Stephon Mukherjee Last Filed: 01/25/18 10:01> (2) Leukocytosis Qualifiers: Leukocytosis type: bandemia Qualified Code(s): D72.825 - Bandemia <Dimitri Jeong Last Filed: 01/25/18 14:59> (2) Leukocytosis Qualifiers: Leukocytosis type: bandemia Qualified Code(s): D72.825 - Bandemia <Stephon Mukherjee Last Filed: 01/25/18 10:01> (2) Leukocytosis Qualifiers: Leukocytosis type: bandemia Qualified Code(s): D72.825 - Bandemia <Dimitri Jeong - Last Filed: 01/25/18 14:59> (2) Leukocytosis Qualifiers: Leukocytosis type: bandemia Qualified Code(s): D72.825 - Bandemia
[2018-01-25] MEDS ORDERED: Phenylephrine/NS 1000 MCG/10ML Syringe IV.PUSH ONE (12:00)
[2018-01-25] MEDS ORDERED: Lidocaine PF 1% Inj 5 ML Syringe INFILTRATN ONE (12:00)
[2018-01-25 12:38] LABS: Activated Partial Thrombo Time 28.9 sec (24.3-30.1); INR 1.1 Ratio; Prothrombin Time 11.3 sec (9.8-11.6)
--- NOTE | 2018-01-25 13:47 | P.OP ---
- Preoperative Diagnosis (1) Right kidney stone - Postoperative Diagnosis (1) Right kidney stone Date of procedure: 01/25/18 Procedure: Right extracorporeal shockwave lithotripsy Anesthesia: other (General LMA) Surgeon: Дмитрий Romero DO Estimated blood loss (mL): 0 Operation and Findings: 77-year-old male with a history of an 8 mm right UPJ stone underwent cystoscopy with right double-J stent insertion over the weekend. He continued to stay in the hospital due to his workup for possible leukemia with an elevated white count over 50,000. He was then cleared to undergo right extrapleural shockwave lithotripsy. Risk and benefits were discussed including bleeding infection he was willing to proceed. Patient brought the operating room and verified by myself as Aristeo Bhatt. He was placed on the operating room table in the supine position, received preprocedure antibiotics and general LMA anesthesia was administered. Under fluoroscopic imaging guidance the stone was visualized in the right kidney. S wall therapy commenced with the patient receiving a total of 2500 shocks with good fragmentation of the right-sided renal stone. He tolerated procedure well and was extubated and transferred recovery in stable condition. He will follow-up in 2 weeks and obtain a CT scan prior and possibly undergo cystoscopy right double-J stent removal in the office at that time.
[2018-01-25] MEDS ORDERED: fentaNYL Citrate Inj 100 MCG/2 ML Ampul ONE (14:00)
[2018-01-25 14:39] VITALS: BP 124/68; TEMP 98
--- NOTE | 2018-01-25 14:52 | P.PNONC ---
Subjective Interval history: Patient denies any new complaint He is anxious for the lithotripsy which is scheduled for today. Patient is wondering whether he could be discharged after the procedure. Objective Vital Signs/Intake & Output: Vital Signs 01/24/18 15:00 01/24/18 16:00 01/24/18 17:00 Temperature Pulse Rate 83 80 80 Respiratory Rate 20 Blood Pressure 136/72 Pulse Oximetry 97 01/24/18 18:00 01/24/18 19:00 01/24/18 20:00 Temperature 98.8 F Pulse Rate 92 H 92 H 86 Respiratory Rate 18 Blood Pressure 143/76 H Pulse Oximetry 96 96 01/24/18 21:00 01/24/18 22:00 01/24/18 23:00 Temperature 98.9 F Pulse Rate 94 H 84 78 Respiratory Rate 16 Blood Pressure 139/74 Pulse Oximetry 94 L 01/25/18 00:00 01/25/18 01:00 01/25/18 02:00 Temperature Pulse Rate 78 74 74 Respiratory Rate Blood Pressure Pulse Oximetry 01/25/18 03:00 01/25/18 04:00 01/25/18 05:00 Temperature 99.3 F Pulse Rate 75 80 80 Respiratory Rate 16 Blood Pressure 138/70 Pulse Oximetry 97 01/25/18 06:00 01/25/18 07:00 01/25/18 08:00 Temperature 98.4 F Pulse Rate 74 86 82 Respiratory Rate 18 Blood Pressure 127/66 Pulse Oximetry 97 01/25/18 09:00 01/25/18 10:00 01/25/18 11:00 Temperature Pulse Rate 77 84 Respiratory Rate Blood Pressure Pulse Oximetry 97 01/25/18 12:00 01/25/18 13:00 01/25/18 14:00 Temperature Pulse Rate 94 H 80 77 Respiratory Rate Blood Pressure Pulse Oximetry 01/25/18 14:39 01/25/18 14:40 Temperature 98.0 F Pulse Rate 77 Respiratory Rate 18 Blood Pressure 124/68 Pulse Oximetry 95 97 Intake & Output 01/24/18 01/25/18 01/25/18 18:59 06:59 18:59 Intake Total 580 / 580 550 / 550 Output Total 1725 / 1725 100 / 100 Balance -1145 / -1145 450 / 450 Weight 65 kg Intake: IV 100 / 100 100 / 100 Rocephin Inj 1,000 MG In NS Inj 100 / 100 100 / 100 100 ML @ 200 mls/hr IV.SIG Q24H [facility] Rx#:[id number] Oral 480 / 480 Anesthesia Amount 450 / 450 Output: Urine 1725 / 1725 100 / 100 Other: # Voids 1 Date of Last Bowel Movement 01/21/18 Result Diagrams: 01/25/18 06:21 01/25/18 06:21 Laboratory Results: Laboratory Results - last 24 hr 01/25/18 01/25/18 01/25/18 06:21 06:21 12:00 WBC 42.9 H RBC 3.77 L Hgb 10.0 L Hct 30.0 L MCV 79.4 L MCH 26.5 L MCHC 33.4 RDW 27.5 H Plt Count 340 MPV 8.5 Prelim Diff (Auto) Slide review pending Neut % (Auto) 92.8 H Lymph % (Auto) 3.1 L [place] % (Auto) 2.8 Eos % (Auto) 0.8 Baso % (Auto) 0.5 Neut # (Auto) 39.9 H Lymph # (Auto) 1.3 [place] # (Auto) 1.2 H Eos # (Auto) 0.3 Baso # (Auto) 0.2 WBC Differential Manual diff final Seg Neuts % (Manual) 65 Band Neuts % (Manual) 12 H Lymphocytes % (Manual) 6 L Monocytes % (Manual) 1 Eosinophils % (Manual) 1 Basophils % (Manual) 1 Metamyelocytes % (Man) 4 H Myelocytes % (Man) 9 H Promyelocytes % (Man) 1 H Abs Neuts (Manual) 39.0 H Nucleated RBCs/100 WBC 1 H Differential Comment . Platelet Estimate Normal Platelet Morphology Normal Ovalocytes 1+ H PT 11.3 INR 1.1 APTT 28.9 Sodium 142 Potassium 3.9 Chloride 107 Carbon Dioxide 24.3 Anion Gap 11 BUN 25 H Creatinine 1.34 H Estimated GFR 52 L Random Glucose 68 L Calcium 8.8 Culture Results: Microbiology 01/22/18 13:19 Aerobic Blood Culture - Preliminary Blood - Peripheral No growth in 3 days Anaerobic Blood Culture - Preliminary No growth in 3 days 01/22/18 13:09 Aerobic Blood Culture - Preliminary Blood - Peripheral No growth in 3 days Anaerobic Blood Culture - Preliminary No growth in 3 days Medications: Active Medications Generic Name Dose Route Start Last Admin Trade Name Freq PRN Reason Stop Dose Admin Hydrocodone Bitart/Acetaminophen 1 tab 01/23/18 00:32 01/23/18 22:21 [place] 5/325 PO 1 tab Q4H PRN Administration PAIN SCALE 3 TO 5 Allopurinol 100 mg 01/23/18 18:30 01/25/18 08:41 Zyloprim PO 100 mg DAILY MOHAN Administration Ceftriaxone Sodium 1,000 mg/ 100 mls @ 200 mls/hr 01/23/18 09:00 01/25/18 11: 52 Sodium Chloride IV.SIG Infused Q24H MOHAN Infusion Oxycodone/Acetaminophen 1 tab 01/22/18 17:20 01/22/18 22:10 Percocet 5/325 Mg PO 01/25/18 23:59 1 tab Q6H PRN Administration ABDOMINAL PAIN Oxycodone/Acetaminophen 1 tab 01/23/18 00:32 01/23/18 01:06 Percocet 10/325 Mg PO 1 tab Q6H PRN Administration PAIN SCALE 6 TO 10 Objective Remarks: GENERAL: Well-nourished, well-developed patient. SKIN: Warm and dry. HEAD: Normocephalic. EYES: No scleral icterus. No injection or drainage. NECK: Supple, trachea midline. No JVD or lymphadenopathy. LYMPHATIC: No adenopathy. CARDIOVASCULAR: Regular rate and rhythm without murmurs. RESPIRATORY: Breath sounds equal bilaterally. No accessory muscle use. GASTROINTESTINAL: Abdomen soft, non-tender, nondistended. EXTREMITIES: No cyanosis, or edema. NEUROLOGICAL: No obvious focal deficit. Awake, alert, and oriented x3. Assessment/Plan (1) Leukocytosis Code(s): D72.829 - Elevated white blood cell count, unspecified Status: Acute - Plan Mr. Bhatt is a pleasant 77-year-old gentlemen, who is under the care of Dr. Sanders for leukocytosis. 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 According to the patients , in October , he had a bone marrow biopsy and his white count was around 14,000-15,000. No treatment was recommended. He was given appointment to see Dr. Sanders in 3 months , which is scheduled for next week. This hospitalization the pt came into the emergency room complaining of severe abdominal pain . He was found to have a right kidney stone, which is causing obstruction. Urology was consulted, Dr. Romero placed a ureteral stent. There are additional nonobstructing calculi noted in both kidneys. Plan: 1. Leukocytosis, counts improving today. This is not thought to be related to infection, rather the myloproliferative disorder. The patient has been cleared for lithotripsy. 2. Myeloproliferative disorder. BCR-ABL by FISH is pending. Awaiting records from Dr. Sanders, pt's oncologist. 3. Anemia studies show normal iron 145, TIBC 213, % sat 68.1, Ferritin 236, B12 > 2000, folate 12.5. 4. Calculi, uric acid 9.7. Continue allopurinol. Pending lithotripsy tomorrow. 01/25/2018 Patient is stable and does not look like he has any infection. He is not toxic he does not have any fever. Leukocytosis is due to myeloproliferative disorder. Some of the records from Dr. Sanders's office available in the paper chart. I have reviewed those and it is confirmed that patient has Krzysztof 2 mutation positive myeloproliferative disorder. He now has progressive myeloproliferative disorder. He has hyperuricemia which has caused the kidney stone. The hyperuricemia is due to the myeloproliferative disorder. Patient is now on allopurinol. Advised him to continue on the allopurinol when he is discharged to home. Patient is cleared from my standpoint for the lithotripsy which is scheduled for today. BCR ABL is still pending Patient can be discharged to home from my standpoint. I have discussed with the patient's nurse that as far as I am concerned he could be discharged. RN will discussed with the admitting physician for discharge orders. Patient has an appointment with his primary oncologist Dr. Sanders for next week. Thank you for asking my opinion (1) Leukocytosis Qualifiers: Leukocytosis type: bandemia Qualified Code(s): D72.825 - Bandemia
[2018-01-25 16:17] VITALS: O2SAT 95
[2018-01-25 18:20] VITALS: PULSE 82
--- NOTE | 2018-02-08 15:06 | P.DS ---
Date of admission: 01/22/18 13:55 Primary care physician: Chicho Wiggins MD Brief History from admission: Patient is a 77-year-old male with past history of leukocytosis with unknown etiology who presents today with back pain. States he had severe right lower back pain earlier this morning, after a few hours the pain radiated to his front /side. Otherwise he denies any significant abdominal pain. Denies nausea, vomiting, fever, chills, constipation, diarrhea, black or bloody stools, dysuria , change in urine color or smell, blood in urine, chest pain, palpitations, shortness of breath, left arm or jaw pain, lightheadedness, dizziness, headache , changes in vision. He denies any significant medical history other than a leukocytosis which is been going on for the past year, high of 17,000, has come down to 14,000 recently, being seen by Dr. Sanders. Reports a lack of energy for the past several weeks, however attributes it to the recent passing of his 18- year-old grandson. Denies anxiety, confusion, depression, sleep disturbances, lack of interest, change in appetite. No other acute complaints today. Medical Leukocytosis, etiology not identified Surg none Family Father: passed from CHF Mother: passed at 94 with Alzheimer Social EtOH: very rarely Smoking: none Drugs: none DS: Diagnosis - Discharge Diagnosis (1) Hydronephrosis with obstructing calculus Status: Acute (2) Leukocytosis Status: Acute (3) Acute renal insufficiency Status: Acute (4) Nutrition, metabolism, and development symptoms Status: Acute DS: Medications - Discharge Medications Prescriptions: allopurinol [Zyloprim] 100 mg PO DAILY #90 tab DS: Summary Hospital Course: Patient admitted 01/22/18 with obstructing calculi and leukocytosis. Leukocytosis initially over 50,000. Double-J stent placed by urology on 01/22/18 , lithotripsy on 01/25/18. Improvement in symptoms following. Seen by hematology for leukocytosis. Hematology reported they believe the leukocytosis is not secondary to the infection. He was started on allopurinol due to elevated uric acid levels. Blood smear showed leukoerythroblastosis, moderate hypochromic microcytic anemia. BCR/abl ordered. Patient is to follow-up with his outpatient reflector driller and deburrer Dr. Sanders. To have stent addressed outpatient with urology. - Time Spent with Patient Total time spent providing and/or coordinating discharge services: Less than 30 minutes - Quality: VTE Deep Vein Thrombosis/Pulmonary Embolism Present on Admission: No Results Procedures completed during hospitalization: Double-J stent placement 01/22/18 Lithotripsy 01/25/18 - Impressions ITS Impressions Abdomen/Pelvis CT 01/22/18 11:30 CONCLUSION: 1. 16 mm x 9.5 mm calculus at the right UPJ with mild right hydronephrosis and obstructive uropathy. Additional nonobstructing calculi in both kidneys as above. 2. Splenomegaly to 17.4 cm in length. 3. Small pericardial effusion with pectus deformity. 4. Moderate coronary calcifications. Discharge Plan - Discharge Disposition Patient Disposition: 01 Discharge Home - Discharge Condition Condition: Stable - Discharge Order Discharge Orders: Discharge Order (Routine); Ordered 01/25/18 Ordered By: Stephon Mukherjee - Discharge Details Anticipated Discharge Date: 01/25/18 - Physicians Team Primary Care Provider: Chicho Wiggins Attending Provider: Zi Ortega Other Providers: Дмитрий Romero DO ; Thor Armstrong MD
== END 2018-01-25 18:40 | disposition home or self-care (01) ==
LOC: NEPC 11:06 → NEDA 13:55 → HCIS 17:57
PROVIDERS: ADMIT Family Medicine; ATTEND Family Medicine
PROC: ESWLBIL (2018-01-25 12:41)